=== PATIENT | male | born 1970 | race African-American/Black ===

== ENCOUNTER 2021-03-03 11:11 | Emergency (ER) | payer OTHER, SELFPAY ==
[2021-03-03 11:35] VITALS: BP 186/101; PULSE 100; RESP 16; TEMP 36.9; O2SAT 95; BMI 33.4
[2021-03-03 13:01] VITALS: BP 173/99; PULSE 105; RESP 16; TEMP 36.7; O2SAT 96
--- NOTE | 2021-03-03 13:12 | ED.ALCOHOL ---
HPI - Alcohol General Chief Complaint: ETOH/Substance Use <Sofia Lombardo PA-C - Last Filed: 03/03/21 17:18> Stated Complaint: requesting detox <Sofia Lombardo PA-C - Last Filed: 03/03/21 17:18> Time Seen by Provider: 03/03/21 12:40 <Sofia Lombardo PA-C - Last Filed: 03/03/21 17:18> Source: patient <Sofia Lombardo PA-C - Last Filed: 03/03/21 17:18> Mode of arrival: ambulatory <Sofia Lombardo PA-C - Last Filed: 03/03/21 17:18> Limitations: no limitations <Sofia Lombardo PA-C - Last Filed: 03/03/21 17:18> History of Present Illness HPI narrative: Patient is a 50-year-old male with past medical history of DM2 on insulin and HTN presenting to the ED requesting detox. He states he last used cocaine and alcohol approximately 24 hours ago, he also last used heroin 24-48 hours ago. He states he is currently feeling nauseous shaky and antsy. He states he has not taken his diabetes medications in about a week and has not checked his blood sugar in a couple of weeks. He states he did take his lisinopril/HCTZ this morning. <Sofia Lombardo PA-C - Last Filed: 03/03/21 17:18> MD complaint: desires rehab <Sofia Lombardo PA-C - Last Filed: 03/03/21 17:18> Related Data Allergies/Adverse Reactions: Allergies Allergy/AdvReac Type Severity Reaction Status Date / Time No Known Allergies Allergy Verified 03/03/21 11:35 <Sofia Lombarod PA-C - Last Filed: 03/03/21 17:18> Review of Systems Review of Systems: Yes all other systems are reviewed and are negative <Sofia Lombardo PA-C - Last Filed: 03/03/21 17:18> [facility] Past Medical History Medical History: Medical History HTN (hypertension) IDDM (insulin dependent diabetes mellitus) <Sofia Lombardo PA-C - Last Filed: 03/03/21 17:18> Social History Social History: Social History Advance Directives: No Advance Directives Information Provided: No <Sofia Lombardo PA-C - Last Filed: 03/03/21 17:18> Physical Exam Vital Signs: Vital Signs: Last Vital Signs Temp 98.1 F 03/03/21 13:01 Pulse 106 H 03/03/21 16:03 Resp 16 03/03/21 16:03 BP 186/109 H 03/03/21 16:03 Pulse Ox 97 03/03/21 16:03 Body Mass Index 33.4 <Sofia Lombardo PA-C - Last Filed: 03/03/21 17:18> Vital Signs: Last Vital Signs Temp 98.1 F 03/03/21 13:01 Pulse 106 H 03/03/21 16:03 Resp 16 03/03/21 16:03 BP 186/109 H 03/03/21 16:03 Pulse Ox 97 03/03/21 16:03 Body Mass Index 33.4 <Codey Phan MD - Last Filed: 03/22/21 13:33> Const: General: cooperative, healthy appearing, comfortable and no acute distress <Sofia Lombardo PA-C - Last Filed: 03/03/21 17:18> Nutritional Appearance: obese <Sofia Lombardo PA-C - Last Filed: 03/03/21 17:18> Orientation/consciousness: patient oriented x3 <Sofia Lombardo PA-C - Last Filed: 03/03/21 17:18> Eyes: General: appearance normal, both eyes and all related structures <Sofia Lombardo PA-C - Last Filed: 03/03/21 17:18> Pupils: Equal, round and reactive pupils present <Sofia Lombardo PA-C - Last Filed: 03/03/21 17:18> EOM: EOMs intact bilaterally <Sofia Lombardo PA-C - Last Filed: 03/03/21 17:18> Neck: Neck: Yes normal visual inspection and Yes full ROM <Sofia Lombardo PA-C - Last Filed: 03/03/21 17:18> Resp: Effort & Inspection: normal respiratory effort and able to speak in complete sentences <Sofia Lombardo PA-C - Last Filed: 03/03/21 17:18> Auscultation: clear to auscultation bilaterally <Sofia Lombardo PA-C - Last Filed: 03/03/21 17:18> Cardio: Rate: regular rate <Sofia Lombardo PA-C - Last Filed: 03/03/21 17:18> Rhythm: regular rhythm <Sofia Lombardo PA-C - Last Filed: 03/03/21 17:18> Heart sounds: normal S1 and S2 <Sofia Lombardo PA-C - Last Filed: 03/03/21 17:18> GI: Inspection: Yes normal to inspection <Sofia Lombardo PA-C - Last Filed: 03/03/21 17:18> Palpation (GI): Soft to palpation and nontender <Sofia Lombardo PA-C - Last Filed: 03/03/21 17:18> Neuro: General: patient oriented x3 <Sofia Lombardo PA-C - Last Filed: 03/03/21 17:18> Cranial nerves: Yes Equal, round and reactive pupils present <Sofia Lombardo PA-C - Last Filed: 03/03/21 17:18> Psych: Appearance: grossly normal <Sofia Lombardo PA-C - Last Filed: 03/03/21 17:18> Course Course Course Narrative: Patient is a 50-year-old male with past medical history of DM2 on insulin and HTN presenting to the ED requesting detox from cocaine, etoh and heroin. Patient's point of care is 506 and 432. Will get labs and move patient to the main ED. will give insulin and fluids and monitor POC's. <Sofia Lombardo PA-C - Last Filed: 03/03/21 17:18> I have reviewed the chart <Codey Phan MD - Last Filed: 03/22/21 13:33> Reevaluation(s) Reevaluation #1: Patient still hypertensive in the 180s systolic, blood glucose in the 360s. Will give 5 mg hydralazine and another 5 units of insulin as well as another L of LR. Then recheck vital then likely discharge around 18:00 <Sofia Lombardo PA-C - Last Filed: 03/03/21 17:18> Time: 17:17 <Sofia Lombardo PA-C - Last Filed: 03/03/21 17:18> Reevaluation #2: Blood pressure is down to 128 over 90, blood sugar is down to 1 5. Will discharge patient, he has a ride to the [facility] and knows where it is. 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 <Sofia Lombardo PA-C - Last Filed: 03/03/21 17:18> MDM - Alcohol Lab Data Result diagrams: : 03/03/21 13:58 03/03/21 14:33 <Sofia Lombardo PA-C - Last Filed: 03/03/21 17:18> Labs: Lab Results 03/03/21 03/03/21 03/03/21 Range/Units 13:15 13:19 13:58 WBC 11.0 H (4.8-10.8) X10*3/uL RBC 4.85 (4.60-5.80) X10*6/uL Hgb 14.9 (14.0-18.0) g/dl Hct 44.3 (42-52) % MCV 91.3 (80-98) fL MCH 30.7 (27.0-33.0) pg MCHC 33.6 (31.0-36.0) g/dl RDW 12.9 (11.0-16.0) % Plt Count 265 (160-400) X10*3/uL MPV 10.3 (9.4-12.4) fL Immature Gran % (Auto) 0.3 (0.0-0.4) % Neut % (Auto) 52.4 (45-73) % Lymph % (Auto) 37.1 (20-40) % [place] % (Auto) 7.3 (2-11) % Eos % (Auto) 2.4 (0-4) % Baso % (Auto) 0.5 (0-2) % Lymph # (Auto) 4.1 (1.2-4.9) X10*3/uL [place] # (Auto) 0.8 (0.1-1.2) X10*3/uL Eos # (Auto) 0.3 (0.0-0.4) X10*3/uL Baso # (Auto) 0.1 (0.0-0.2) X10*3/uL Abs Immat Gran (auto) 0.03 (0.00-0.03) X10*3/uL Absolute Neuts (auto) 5.8 (2.0-8.3) X10*3/uL Absolute Nucleated RBC 0.000 (0.0-0.012) X10*3/uL Nucleated RBC % (auto) 0.0 (0.0-0.2) /100WBC PT (10.8-13.0) SEC INR (0.9-1.1) APTT (24.1-38.0) SEC VBG pH (7.32-7.43) VBG pCO2 mmHg VBG pO2 mmHg VBG HCO3 (22-26) mmol/L VBG O2 Saturation % VBG Base Excess mmol/L Sodium (135-145) mmol/L Potassium (3.3-5.1) mmol/L Chloride (96-108) mmol/L Carbon Dioxide (22-29) mmol/L Anion Gap (12-20) BUN (9-16) mg/dL Creatinine (0.5-1.4) mg/dL Estim Creat Clear Calc Estimated GFR POC Glucose 432 H* 506 H* (60-115) mg/dL Random Glucose (60-115) mg/dL Calcium (8.4-10.2) mg/dL Total Bilirubin (0.0-1.0) mg/dL AST (5-37) U/L ALT (0-40) U/L Alkaline Phosphatase (39-117) U/L Total Protein (6.5-8.0) g/dL Albumin (3.5-5.0) g/dL Urine Opiates Screen (Not Detect) Ur Barbiturates Screen (Not Detect) Ur Phencyclidine Scrn (Not Detect) Ur Amphetamines Screen (Not Detect) U Benzodiazepines Scrn (Not Detect) Urine Cocaine Screen (Not Detect) U Marijuana (THC) Screen (Not Detect) Ethyl Alcohol mg/dL 03/03/21 03/03/21 03/03/21 Range/Units 13:58 13:58 14:25 WBC (4.8-10.8) X10*3/uL RBC (4.60-5.80) X10*6/uL Hgb (14.0-18.0) g/dl Hct (42-52) % MCV (80-98) fL MCH (27.0-33.0) pg MCHC (31.0-36.0) g/dl RDW (11.0-16.0) % Plt Count (160-400) X10*3/uL MPV (9.4-12.4) fL Immature Gran % (Auto) (0.0-0.4) % Neut % (Auto) (45-73) % Lymph % (Auto) (20-40) % [place] % (Auto) (2-11) % Eos % (Auto) (0-4) % Baso % (Auto) (0-2) % Lymph # (Auto) (1.2-4.9) X10*3/uL [place] # (Auto) (0.1-1.2) X10*3/uL Eos # (Auto) (0.0-0.4) X10*3/uL Baso # (Auto) (0.0-0.2) X10*3/uL Abs Immat Gran (auto) (0.00-0.03) X10*3/uL Absolute Neuts (auto) (2.0-8.3) X10*3/uL Absolute Nucleated RBC (0.0-0.012) X10*3/uL Nucleated RBC % (auto) (0.0-0.2) /100WBC PT 12.4 (10.8-13.0) SEC INR 1.0 (0.9-1.1) APTT 30.7 (24.1-38.0) SEC VBG pH (7.32-7.43) VBG pCO2 mmHg VBG pO2 mmHg VBG HCO3 (22-26) mmol/L VBG O2 Saturation % VBG Base Excess mmol/L Sodium (135-145) mmol/L Potassium (3.3-5.1) mmol/L Chloride (96-108) mmol/L Carbon Dioxide (22-29) mmol/L Anion Gap (12-20) BUN (9-16) mg/dL Creatinine (0.5-1.4) mg/dL Estim Creat Clear Calc Estimated GFR POC Glucose (60-115) mg/dL Random Glucose (60-115) mg/dL Calcium (8.4-10.2) mg/dL Total Bilirubin (0.0-1.0) mg/dL AST (5-37) U/L ALT (0-40) U/L Alkaline Phosphatase (39-117) U/L Total Protein (6.5-8.0) g/dL Albumin (3.5-5.0) g/dL Urine Opiates Screen Not Detected (Not Detect) Ur Barbiturates Screen Not Detected (Not Detect) Ur Phencyclidine Scrn Not Detected (Not Detect) Ur Amphetamines Screen Not Detected (Not Detect) U Benzodiazepines Scrn Not Detected (Not Detect) Urine Cocaine Screen POSITIVE H (Not Detect) U Marijuana (THC) Screen Not Detected (Not Detect) Ethyl Alcohol < 10 mg/dL 03/03/21 03/03/21 03/03/21 Range/Units 14:33 14:40 15:22 WBC (4.8-10.8) X10*3/uL RBC (4.60-5.80) X10*6/uL Hgb (14.0-18.0) g/dl Hct (42-52) % MCV (80-98) fL MCH (27.0-33.0) pg MCHC (31.0-36.0) g/dl RDW (11.0-16.0) % Plt Count (160-400) X10*3/uL MPV (9.4-12.4) fL Immature Gran % (Auto) (0.0-0.4) % Neut % (Auto) (45-73) % Lymph % (Auto) (20-40) % [place] % (Auto) (2-11) % Eos % (Auto) (0-4) % Baso % (Auto) (0-2) % Lymph # (Auto) (1.2-4.9) X10*3/uL [place] # (Auto) (0.1-1.2) X10*3/uL Eos # (Auto) (0.0-0.4) X10*3/uL Baso # (Auto) (0.0-0.2) X10*3/uL Abs Immat Gran (auto) (0.00-0.03) X10*3/uL Absolute Neuts (auto) (2.0-8.3) X10*3/uL Absolute Nucleated RBC (0.0-0.012) X10*3/uL Nucleated RBC % (auto) (0.0-0.2) /100WBC PT (10.8-13.0) SEC INR (0.9-1.1) APTT (24.1-38.0) SEC VBG pH 7.41 (7.32-7.43) VBG pCO2 38 mmHg VBG pO2 58 mmHg VBG HCO3 24 (22-26) mmol/L VBG O2 Saturation 87.0 % VBG Base Excess 0.4 mmol/L Sodium 133 L (135-145) mmol/L Potassium 4.3 (3.3-5.1) mmol/L Chloride 96 (96-108) mmol/L Carbon Dioxide 25 (22-29) mmol/L Anion Gap 16 (12-20) BUN 11 (9-16) mg/dL Creatinine 1.24 (0.5-1.4) mg/dL Estim Creat Clear Calc 83.4 Estimated GFR > 60 POC Glucose 384 H* (60-115) mg/dL Random Glucose 510 H* (60-115) mg/dL Calcium 9.4 (8.4-10.2) mg/dL Total Bilirubin 0.6 (0.0-1.0) mg/dL AST 15 (5-37) U/L ALT 21 (0-40) U/L Alkaline Phosphatase 85 (39-117) U/L Total Protein 6.9 (6.5-8.0) g/dL Albumin 4.1 (3.5-5.0) g/dL Urine Opiates Screen (Not Detect) Ur Barbiturates Screen (Not Detect) Ur Phencyclidine Scrn (Not Detect) Ur Amphetamines Screen (Not Detect) U Benzodiazepines Scrn (Not Detect) Urine Cocaine Screen (Not Detect) U Marijuana (THC) Screen (Not Detect) Ethyl Alcohol mg/dL 03/03/21 03/03/21 Range/Units 16:00 17:09 WBC (4.8-10.8) X10*3/uL RBC (4.60-5.80) X10*6/uL Hgb (14.0-18.0) g/dl Hct (42-52) % MCV (80-98) fL MCH (27.0-33.0) pg MCHC (31.0-36.0) g/dl RDW (11.0-16.0) % Plt Count (160-400) X10*3/uL MPV (9.4-12.4) fL Immature Gran % (Auto) (0.0-0.4) % Neut % (Auto) (45-73) % Lymph % (Auto) (20-40) % [place] % (Auto) (2-11) % Eos % (Auto) (0-4) % Baso % (Auto) (0-2) % Lymph # (Auto) (1.2-4.9) X10*3/uL [place] # (Auto) (0.1-1.2) X10*3/uL Eos # (Auto) (0.0-0.4) X10*3/uL Baso # (Auto) (0.0-0.2) X10*3/uL Abs Immat Gran (auto) (0.00-0.03) X10*3/uL Absolute Neuts (auto) (2.0-8.3) X10*3/uL Absolute Nucleated RBC (0.0-0.012) X10*3/uL Nucleated RBC % (auto) (0.0-0.2) /100WBC PT (10.8-13.0) SEC INR (0.9-1.1) APTT (24.1-38.0) SEC VBG pH (7.32-7.43) VBG pCO2 mmHg VBG pO2 mmHg VBG HCO3 (22-26) mmol/L VBG O2 Saturation % VBG Base Excess mmol/L Sodium (135-145) mmol/L Potassium (3.3-5.1) mmol/L Chloride (96-108) mmol/L Carbon Dioxide (22-29) mmol/L Anion Gap (12-20) BUN (9-16) mg/dL Creatinine (0.5-1.4) mg/dL Estim Creat Clear Calc Estimated GFR POC Glucose 362 H* 214 H (60-115) mg/dL Random Glucose (60-115) mg/dL Calcium (8.4-10.2) mg/dL Total Bilirubin (0.0-1.0) mg/dL AST (5-37) U/L ALT (0-40) U/L Alkaline Phosphatase (39-117) U/L Total Protein (6.5-8.0) g/dL Albumin (3.5-5.0) g/dL Urine Opiates Screen (Not Detect) Ur Barbiturates Screen (Not Detect) Ur Phencyclidine Scrn (Not Detect) Ur Amphetamines Screen (Not Detect) U Benzodiazepines Scrn (Not Detect) Urine Cocaine Screen (Not Detect) U Marijuana (THC) Screen (Not Detect) Ethyl Alcohol mg/dL <Sofia Lombardo PA-C - Last Filed: 03/03/21 17:18> Lab Results 03/03/21 03/03/21 03/03/21 Range/Units 13:15 13:19 13:58 WBC 11.0 H (4.8-10.8) X10*3/uL RBC 4.85 (4.60-5.80) X10*6/uL Hgb 14.9 (14.0-18.0) g/dl Hct 44.3 (42-52) % MCV 91.3 (80-98) fL MCH 30.7 (27.0-33.0) pg MCHC 33.6 (31.0-36.0) g/dl RDW 12.9 (11.0-16.0) % Plt Count 265 (160-400) X10*3/uL MPV 10.3 (9.4-12.4) fL Immature Gran % (Auto) 0.3 (0.0-0.4) % Neut % (Auto) 52.4 (45-73) % Lymph % (Auto) 37.1 (20-40) % [place] % (Auto) 7.3 (2-11) % Eos % (Auto) 2.4 (0-4) % Baso % (Auto) 0.5 (0-2) % Lymph # (Auto) 4.1 (1.2-4.9) X10*3/uL [place] # (Auto) 0.8 (0.1-1.2) X10*3/uL Eos # (Auto) 0.3 (0.0-0.4) X10*3/uL Baso # (Auto) 0.1 (0.0-0.2) X10*3/uL Abs Immat Gran (auto) 0.03 (0.00-0.03) X10*3/uL Absolute Neuts (auto) 5.8 (2.0-8.3) X10*3/uL Absolute Nucleated RBC 0.000 (0.0-0.012) X10*3/uL Nucleated RBC % (auto) 0.0 (0.0-0.2) /100WBC PT (10.8-13.0) SEC INR (0.9-1.1) APTT (24.1-38.0) SEC VBG pH (7.32-7.43) VBG pCO2 mmHg VBG pO2 mmHg VBG HCO3 (22-26) mmol/L VBG O2 Saturation % VBG Base Excess mmol/L Sodium (135-145) mmol/L Potassium (3.3-5.1) mmol/L Chloride (96-108) mmol/L Carbon Dioxide (22-29) mmol/L Anion Gap (12-20) BUN (9-16) mg/dL Creatinine (0.5-1.4) mg/dL Estim Creat Clear Calc Estimated GFR POC Glucose 432 H* 506 H* (60-115) mg/dL Random Glucose (60-115) mg/dL Calcium (8.4-10.2) mg/dL Total Bilirubin (0.0-1.0) mg/dL AST (5-37) U/L ALT (0-40) U/L Alkaline Phosphatase (39-117) U/L Total Protein (6.5-8.0) g/dL Albumin (3.5-5.0) g/dL Urine Opiates Screen (Not Detect) Ur Barbiturates Screen (Not Detect) Ur Phencyclidine Scrn (Not Detect) Ur Amphetamines Screen (Not Detect) U Benzodiazepines Scrn (Not Detect) Urine Cocaine Screen (Not Detect) U Marijuana (THC) Screen (Not Detect) Ethyl Alcohol mg/dL 03/03/21 03/03/21 03/03/21 Range/Units 13:58 13:58 14:25 WBC (4.8-10.8) X10*3/uL RBC (4.60-5.80) X10*6/uL Hgb (14.0-18.0) g/dl Hct (42-52) % MCV (80-98) fL MCH (27.0-33.0) pg MCHC (31.0-36.0) g/dl RDW (11.0-16.0) % Plt Count (160-400) X10*3/uL MPV (9.4-12.4) fL Immature Gran % (Auto) (0.0-0.4) % Neut % (Auto) (45-73) % Lymph % (Auto) (20-40) % [place] % (Auto) (2-11) % Eos % (Auto) (0-4) % Baso % (Auto) (0-2) % Lymph # (Auto) (1.2-4.9) X10*3/uL [place] # (Auto) (0.1-1.2) X10*3/uL Eos # (Auto) (0.0-0.4) X10*3/uL Baso # (Auto) (0.0-0.2) X10*3/uL Abs Immat Gran (auto) (0.00-0.03) X10*3/uL Absolute Neuts (auto) (2.0-8.3) X10*3/uL Absolute Nucleated RBC (0.0-0.012) X10*3/uL Nucleated RBC % (auto) (0.0-0.2) /100WBC PT 12.4 (10.8-13.0) SEC INR 1.0 (0.9-1.1) APTT 30.7 (24.1-38.0) SEC VBG pH (7.32-7.43) VBG pCO2 mmHg VBG pO2 mmHg VBG HCO3 (22-26) mmol/L VBG O2 Saturation % VBG Base Excess mmol/L Sodium (135-145) mmol/L Potassium (3.3-5.1) mmol/L Chloride (96-108) mmol/L Carbon Dioxide (22-29) mmol/L Anion Gap (12-20) BUN (9-16) mg/dL Creatinine (0.5-1.4) mg/dL Estim Creat Clear Calc Estimated GFR POC Glucose (60-115) mg/dL Random Glucose (60-115) mg/dL Calcium (8.4-10.2) mg/dL Total Bilirubin (0.0-1.0) mg/dL AST (5-37) U/L ALT (0-40) U/L Alkaline Phosphatase (39-117) U/L Total Protein (6.5-8.0) g/dL Albumin (3.5-5.0) g/dL Urine Opiates Screen Not Detected (Not Detect) Ur Barbiturates Screen Not Detected (Not Detect) Ur Phencyclidine Scrn Not Detected (Not Detect) Ur Amphetamines Screen Not Detected (Not Detect) U Benzodiazepines Scrn Not Detected (Not Detect) Urine Cocaine Screen POSITIVE H (Not Detect) U Marijuana (THC) Screen Not Detected (Not Detect) Ethyl Alcohol < 10 mg/dL 03/03/21 03/03/21 03/03/21 Range/Units 14:33 14:40 15:22 WBC (4.8-10.8) X10*3/uL RBC (4.60-5.80) X10*6/uL Hgb (14.0-18.0) g/dl Hct (42-52) % MCV (80-98) fL MCH (27.0-33.0) pg MCHC (31.0-36.0) g/dl RDW (11.0-16.0) % Plt Count (160-400) X10*3/uL MPV (9.4-12.4) fL Immature Gran % (Auto) (0.0-0.4) % Neut % (Auto) (45-73) % Lymph % (Auto) (20-40) % [place] % (Auto) (2-11) % Eos % (Auto) (0-4) % Baso % (Auto) (0-2) % Lymph # (Auto) (1.2-4.9) X10*3/uL [place] # (Auto) (0.1-1.2) X10*3/uL Eos # (Auto) (0.0-0.4) X10*3/uL Baso # (Auto) (0.0-0.2) X10*3/uL Abs Immat Gran (auto) (0.00-0.03) X10*3/uL Absolute Neuts (auto) (2.0-8.3) X10*3/uL Absolute Nucleated RBC (0.0-0.012) X10*3/uL Nucleated RBC % (auto) (0.0-0.2) /100WBC PT (10.8-13.0) SEC INR (0.9-1.1) APTT (24.1-38.0) SEC VBG pH 7.41 (7.32-7.43) VBG pCO2 38 mmHg VBG pO2 58 mmHg VBG HCO3 24 (22-26) mmol/L VBG O2 Saturation 87.0 % VBG Base Excess 0.4 mmol/L Sodium 133 L (135-145) mmol/L Potassium 4.3 (3.3-5.1) mmol/L Chloride 96 (96-108) mmol/L Carbon Dioxide 25 (22-29) mmol/L Anion Gap 16 (12-20) BUN 11 (9-16) mg/dL Creatinine 1.24 (0.5-1.4) mg/dL Estim Creat Clear Calc 83.4 Estimated GFR > 60 POC Glucose 384 H* (60-115) mg/dL Random Glucose 510 H* (60-115) mg/dL Calcium 9.4 (8.4-10.2) mg/dL Total Bilirubin 0.6 (0.0-1.0) mg/dL AST 15 (5-37) U/L ALT 21 (0-40) U/L Alkaline Phosphatase 85 (39-117) U/L Total Protein 6.9 (6.5-8.0) g/dL Albumin 4.1 (3.5-5.0) g/dL Urine Opiates Screen (Not Detect) Ur Barbiturates Screen (Not Detect) Ur Phencyclidine Scrn (Not Detect) Ur Amphetamines Screen (Not Detect) U Benzodiazepines Scrn (Not Detect) Urine Cocaine Screen (Not Detect) U Marijuana (THC) Screen (Not Detect) Ethyl Alcohol mg/dL 03/03/21 03/03/21 Range/Units 16:00 17:09 WBC (4.8-10.8) X10*3/uL RBC (4.60-5.80) X10*6/uL Hgb (14.0-18.0) g/dl Hct (42-52) % MCV (80-98) fL MCH (27.0-33.0) pg MCHC (31.0-36.0) g/dl RDW (11.0-16.0) % Plt Count (160-400) X10*3/uL MPV (9.4-12.4) fL Immature Gran % (Auto) (0.0-0.4) % Neut % (Auto) (45-73) % Lymph % (Auto) (20-40) % [place] % (Auto) (2-11) % Eos % (Auto) (0-4) % Baso % (Auto) (0-2) % Lymph # (Auto) (1.2-4.9) X10*3/uL [place] # (Auto) (0.1-1.2) X10*3/uL Eos # (Auto) (0.0-0.4) X10*3/uL Baso # (Auto) (0.0-0.2) X10*3/uL Abs Immat Gran (auto) (0.00-0.03) X10*3/uL Absolute Neuts (auto) (2.0-8.3) X10*3/uL Absolute Nucleated RBC (0.0-0.012) X10*3/uL Nucleated RBC % (auto) (0.0-0.2) /100WBC PT (10.8-13.0) SEC INR (0.9-1.1) APTT (24.1-38.0) SEC VBG pH (7.32-7.43) VBG pCO2 mmHg VBG pO2 mmHg VBG HCO3 (22-26) mmol/L VBG O2 Saturation % VBG Base Excess mmol/L Sodium (135-145) mmol/L Potassium (3.3-5.1) mmol/L Chloride (96-108) mmol/L Carbon Dioxide (22-29) mmol/L Anion Gap (12-20) BUN (9-16) mg/dL Creatinine (0.5-1.4) mg/dL Estim Creat Clear Calc Estimated GFR POC Glucose 362 H* 214 H (60-115) mg/dL Random Glucose (60-115) mg/dL Calcium (8.4-10.2) mg/dL Total Bilirubin (0.0-1.0) mg/dL AST (5-37) U/L ALT (0-40) U/L Alkaline Phosphatase (39-117) U/L Total Protein (6.5-8.0) g/dL Albumin (3.5-5.0) g/dL Urine Opiates Screen (Not Detect) Ur Barbiturates Screen (Not Detect) Ur Phencyclidine Scrn (Not Detect) Ur Amphetamines Screen (Not Detect) U Benzodiazepines Scrn (Not Detect) Urine Cocaine Screen (Not Detect) U Marijuana (THC) Screen (Not Detect) Ethyl Alcohol mg/dL <Codey Phan MD - Last Filed: 03/22/21 13:33> Discharge Plan Discharge Clinical Impression: ETOH abuse, Current drug use, Hypertension, IDDM (insulin dependent diabetes mellitus) <Sofia Lombardo PA-C - Last Filed: 03/03/21 17:18> Patient Disposition: Home, Self-Care <Sofia Lombardo PA-C - Last Filed: 03/03/21 17:18> Instructions: Abuse of Alcohol (ED), Polysubstance Abuse (ED), Hypertension and Diabetes (ED) <Sofia Lombardo PA-C - Last Filed: 03/03/21 17:18> Additional Instructions: As you stop taking her diabetes medications, your blood sugar obviously was elevated. We have brought that down to a safer level today. It is imperative you continue to take her diabetes medications or your blood sugar will go right back up. Please continue to take your hypertension and diabetes medications. Please follow-up with your PCP as soon as possible. <Sofia Lombardo PA-C - Last Filed: 03/03/21 17:18> Interventions: ED Discharge Assessment Last Done: 03/03/21 17:21 <Sofia Lombardo PA-C - Last Filed: 03/03/21 17:18> Discharge Date/Time: 03/03/21 17:22 <Sofia Lombardo PA-C - Last Filed: 03/03/21 17:18>
[2021-03-03 13:23] LABS: Glucose, Whole Blood 506 mg/dL (60-115)
[2021-03-03 13:24] LABS: Glucose, Whole Blood 432 mg/dL (60-115)
--- NOTE | 2021-03-03 13:40 | MHC.RECOVSUP ---
? Reason for consult:Continuity of care o Current location:[facility] o Identified substance use concern: ETOH, Crack, Heroin - Withdrawal - Seeking ATS (detox) - Support ? Intervention: o ATS bed search started/completed/in proces o Community resources provided o Harm reduction discussion ? Plan: o o Bed search in progress o Patient to follow up with [facility] after discharge ? Additional information:
[2021-03-03 14:14] LABS: MANUAL DIFF FLAG NO
[2021-03-03 14:17] LABS: Basophils Absolute Auto 0.1 X10*3/uL (0.0-0.2); Basophils Percent Auto 0.5 % (0-2); Eosinophils Absolute Auto 0.3 X10*3/uL (0.0-0.4); Eosinophils Percent Auto 2.4 % (0-4); Hematocrit 44.3 % (42-52); Hemoglobin 14.9 g/dl (14.0-18.0); Imm Gran Abs Auto 0.03 X10*3/uL (0.00-0.03); Imm Gran Pct Auto 0.3 % (0.0-0.4); Lymphocytes Absolute Auto 4.1 X10*3/uL (1.2-4.9); Lymphocytes Percent Auto 37.1 % (20-40); Mean Corpuscular HGB Conc 33.6 g/dl (31.0-36.0); Mean Corpuscular Hemoglobin 30.7 pg (27.0-33.0); Mean Corpuscular Volume 91.3 fL (80-98); Mean Platelet Volume 10.3 fL (9.4-12.4); Monocytes Absolute Auto 0.8 X10*3/uL (0.1-1.2); Monocytes Percent Auto 7.3 % (2-11); Neutrophils Absolute Auto 5.8 X10*3/uL (2.0-8.3); Neutrophils Percent Auto 52.4 % (45-73); Platelet Count 265 X10*3/uL (160-400); Red Blood Count 4.85 X10*6/uL (4.60-5.80); Red Cell Distribution Width 12.9 % (11.0-16.0)
[2021-03-03 14:21] LABS: Prothrombin Time 12.4 SEC (10.8-13.0)
[2021-03-03 14:23] LABS: Partial Thromboplastin Time 30.7 SEC (24.1-38.0)
[2021-03-03] MEDS: Insulin Regular, Human 100 UNIT/ML 3 ML VIAL SUBCUT (14:26)
[2021-03-03] MEDS: Lactated Ringers 1,000 ML 999 ML IV ×2 (14:27→16:26)
[2021-03-03 14:37] LABS: Ethanol < 10 mg/dL
[2021-03-03 14:46] LABS: VBG Base Excess 0.4 mmol/L; VBG HCO3 24 mmol/L (22-26); VBG pCO2 38 mmHg; VBG pH 7.41 (7.32-7.43); VBG pO2 58 mmHg
[2021-03-03 14:48] LABS: Venous Blood Gas Refer to POC result
[2021-03-03 15:03] LABS: Amphetamine Screen Urine Not Detected (Not Detect); Barbiturates, Urine Not Detected (Not Detect); Benzodiazepines Screen Urine Not Detected (Not Detect); Cannabinoid Screen Urine Not Detected (Not Detect); Cocaine Screen Urine POSITIVE (Not Detect); Opiate Screen Urine Not Detected (Not Detect); Phencyclidine Screen Urine Not Detected (Not Detect)
[2021-03-03 15:19] LABS: Alanine Aminotransferase 21 U/L (0-40); Albumin Level 4.1 g/dL (3.5-5.0); Alkaline Phosphatase 85 U/L (39-117); Anion Gap 16 (12-20); Aspartate Amino Transferase 15 U/L (5-37); Bilirubin Total 0.6 mg/dL (0.0-1.0); Blood Urea Nitrogen 11 mg/dL (9-16); Calcium 9.4 mg/dL (8.4-10.2); Carbon Dioxide 25 mmol/L (22-29); Chloride 96 mmol/L (96-108); Creatinine Clr Calc Pharmacy 83.4; Estimated Glomerular Filt Rate > 60; Glucose Random 510 mg/dL (60-115); Potassium 4.3 mmol/L (3.3-5.1); Sodium 133 mmol/L (135-145); Total Protein 6.9 g/dL (6.5-8.0)
[2021-03-03 15:25] LABS: Glucose, Whole Blood 384 mg/dL (60-115)
[2021-03-03 16:03] VITALS: BP 186/109; PULSE 106; RESP 16; O2SAT 97
[2021-03-03] MEDS: hydrALAZINE HCl 10 MG TABLET PO (16:26)
[2021-03-03] MEDS: Insulin Regular, Human 100 UNIT/ML 3 ML VIAL IVPUSH (16:26)
[2021-03-03 16:27] LABS: Glucose, Whole Blood 362 mg/dL (60-115)
[2021-03-03 17:13] LABS: Glucose, Whole Blood 214 mg/dL (60-115)
== END 2021-03-03 17:22 | disposition home or self-care (01) ==
PROVIDERS: Physician Assistant; Emergency Provider Emergency Medicine; PCP Internal Medicine
DX: F14.90 Cocaine use, unspecified, uncomplicated (principal); F11.90 Opioid use, unspecified, uncomplicated; F10.10 Alcohol abuse, uncomplicated; Y90.0 Blood alcohol level of less than 20 mg/100 ml; E11.9 Type 2 diabetes mellitus without complications; Z91.14 Patient's other noncompliance with medication regimen; I10 Essential (primary) hypertension; Z79.4 Long term (current) use of insulin
CPT/HCPCS: 36415; 80053; 80307; 80320; 82947; 85025; 85610; 85730; 96365; 96366; 96375; 99283; 99284

== ENCOUNTER 2024-06-30 12:26 | Emergency (ER) | payer OTHER, SELFPAY ==
--- NOTE | ~2024-06-30 | CT_ITS ---
EXAMINATION: CT HEAD WITHOUT CONTRAST CT CERVICAL SPINE WITHOUT CONTRAST CLINICAL INFORMATION: Altered mental status. Neck pain. Patient found on ground. COMPARISON: None available. TECHNIQUE: Contiguous axial imaging was performed from the skull base to vertex without intravenous administration of contrast. Contiguous axial imaging was performed from the upper chest through the skull base without intravenous administration of contrast. Coronal and sagittal reformats were obtained at the acquisition workstation. This CT examination was performed using dose optimization techniques as appropriate, variously including the following: *Automated exposure control. *Adjustment of mA and/or kV according to patient size (this includes techniques or standardized protocols for targeted exams where dose is matched to indication/reason for exam; i.e. extremities or head). *Use of iterative reconstruction technique. DLP: 2230 mGy-cm FINDINGS: Head: Moderately motion degraded exam. There is no evidence of acute intracranial hemorrhage or edematous territorial infarction. Estrada-white matter differentiation is preserved. A few foci of hypoattenuation in the periventricular and deep white matter are consistent with mild microangiopathy. Proportional prominence of the ventricles and sulcal spaces without evidence of obstructive hydrocephalus. No abnormal mass effect or midline shift. No extra-axial fluid collections. No acute soft tissue or osseous abnormalities. Complete opacification of an atelectatic left maxillary sinus. Mild mucosal thickening of the remaining paranasal sinuses. The mastoid air cells and middle ear cavities are clear. Cervical Spine: Moderately motion degraded exam. The atlantooccipital and atlantoaxial articulations remain well aligned. Straightening of the normal cervical lordosis. Moderate degenerative retrolisthesis of L3 on L4. Otherwise, there is anatomic alignment of the vertebral bodies and posterior elements. No evidence of acute fracture or subluxation. The vertebral body heights are maintained. Advanced degenerative disc disease at C3-C4 and C5-C6. Mild to moderate degenerative disc disease at all additional levels. Facet and uncovertebral joint arthropathy leads to osseous encroachment on the neural foramina at C3-C4. There is no prevertebral soft tissue swelling. Mild to moderate anasarca. The thyroid gland and remaining cervical soft tissues are within normal limits. The lung apices demonstrate no abnormalities. CT/CT cervical spine wo IV con IMPRESSION: 1. No evidence of acute intracranial hemorrhage or edematous territorial infarction. Mild underlying microangiopathy and generalized cerebral volume loss. 2. No evidence of acute fracture or traumatic subluxation of the cervical spine. Moderate multilevel degenerative spondyloarthropathy of the cervical spine. Electronically signed by: Ron Brown DO 06/30/2024 06:10 PM EDT RP
--- NOTE | ~2024-06-30 | XR_ITS ---
EXAMINATION: XR CHEST CLINICAL INFORMATION: Status post fall. Altered mental status. Chest trauma. COMPARISON: None available. TECHNIQUE: Frontal view of the chest was obtained. FINDINGS: Cardiomediastinal silhouette is within normal limits for given technique. Lungs are adequately expanded. No focal consolidation, changes of congestion, pleural effusions or pneumothorax are seen. No displaced rib fractures are seen. XR/XR chest 1V IMPRESSION: No acute pulmonary process. No displaced rib fractures are seen. Electronically signed by: Alana Wolf MD 06/30/2024 03:28 PM EDT
[2024-06-30 12:40] VITALS: BP 169/106; PULSE 78; O2SAT 95
--- NOTE | 2024-06-30 12:44 | ED_ITS ---
HPI - General Adult General Chief complaint: Altered Mental Status Stated complaint: LOW BS 37,DEXTROSE GIVEN PER EMS Time Seen by Provider: 06/30/24 12:40 Source: patient Mode of arrival: ambulatory Limitations: altered mental status History of Present Illness ED Provider: Stan ANDREW HPI narrative: 53 yo m hx HTN, IDDM, substance use disorder presenting for low glucose, he was found on the ground at the [facility] POC was 37. He got 25 g of dextrose by EMS repeat sugar 156. Sugar was 56 upon arrival here. Unclear how much insulin he took this morning he is confused on arrival and poor historian . He told nursing staff he did not eat this AM. Related Data Allergies Allergy/AdvReac Type Severity Reaction Status Date / Time No Known Allergies Allergy Verified 06/30/24 13:04 Review of Systems 2 Review of Systems: Yes Unobtainable due to mental status [facility] Past Medical History Attestation statement: The following information was validated with the patient. Source: old records reviewed and nursing notes reviewed Medical History HTN (hypertension) IDDM (insulin dependent diabetes mellitus) Social History Social History Advance Directives: No Advance Directives Information Provided: No Physical Exam ED Vital Signs: Vital Signs - 24 hr 06/30/24 12:45 06/30/24 14:47 Temperature 98.3 F Pulse Rate 83 85 Respiratory Rate 16 16 Blood Pressure 151/83 H 135/78 Pulse Oximetry 100 100 Oxygen Delivery Method Room Air Room Air BMI result Body Mass Index 30.4 vss Appearance: Alert.? Oriented to person not place, time or situation.? No acute distress.? Head: Normocephalic, atraumatic, no step-offs or deformities Eyes: Pupils equal, round and reactive to light.? CVS: Normal heart rate and rhythm.? Pulses normal.? Respiratory: No respiratory distress.?B/l wheeze. Abdomen: Soft and nontender.? Skin: Skin warm and dry.? Normal skin color.? Normal skin turgor.? Extremities: No lower extremity edema.? No calf ttp. 5/5 strength to bilateral upper and lower extremities Back: No midline tenderness, no C-spine tenderness, full range of motion, no CVA tenderness bilaterally Neuro: Oriented to person not place, time or situation. No motor deficit.? No sensory deficit. CN 2-12 intact Course Reevaluation(s) Reevaluation #1: CBC with no acute findings. Chemistry with low potassium, patient drank oral potassium, patient's point of care glucose initially was 19, it is now 122, patient eating and drinking alert and oriented x4. Beta hydroxybutyrate negative. VBG unremarkable. Patient states he wants to leave, explained to him this would be against medical advice and he can if he leaves. He reports he needs to go to work and he does not want to lose his job explained we could provide work note however is refusing to stay will sign out against medical advice despite the risks of leaving. Patient in sane mind to make his own decisions Time: 15:12 Medications Administered Generic Name Dose Route Start Last Admin Trade Name Freq PRN Reason Stop Dose Admin Dextrose/Sodium Chloride 1,000 mls @ 100 mls/hr 06/30/24 13:00 06/30/24 12:52 D5ns IVCONT 100 mls/hr .Q10H KASI Administration Discontinued Medications Generic Name Dose Route Start Last Admin Trade Name Freq PRN Reason Stop Dose Admin Glucose 15 gm 06/30/24 12:47 06/30/24 12:52 Glucose Gel 15 Gm Gel..Gram. PO 06/30/24 12:48 15 gm ONCE ONE Administration Glucose 15 gm 06/30/24 13:52 06/30/24 14:52 Glucose Gel 15 Gm Gel..Gram. PO 06/30/24 13:53 Not Given ONCE ONE Potassium Chloride 40 meq 06/30/24 14:18 06/30/24 14:47 Potassium Chloride Packet 20 Meq Packet PO 06/30/24 14:19 40 meq ONCE ONE Administration Medical Decision Making Medical Decision Making MDM Narrative: 53 yo m presents w/ [place] p[place] 37 initially PE patient confused Hx and pe concerning for acute hypoglycemia. Will rule out polysubstance, ich, metabolic derangments. Less likely stroke, meningitis, encephalitis Plan- labs,imaging Differential Diagnosis Differential Diagnoses: The differential diagnosis associated with the presentation includes Hx and pe concerning for acute hypoglycemia. Will rule out polysubstance, ich, metabolic derangments. Less likely stroke, meningitis, encephalitis Admission/Observation Consideration of admission/observation: Escalation of care including admission/observation considered possible Lab Data MDM Lab Attestation statement: I reviewed the patient's lab results. 06/30/24 13:12 06/30/24 13:12 Labs: Lab Results 06/30/24 06/30/24 06/30/24 Range/Units 12:45 13:11 13:12 WBC 8.0 (4.8-10.8) X10*3/uL RBC 5.02 (4.60-5.80) X10*6/uL Hgb 16.2 (14.0-18.0) g/dl Hct 47.9 (42.0-52.0) % MCV 95.4 (80.0-98.0) fL MCH 32.3 (27.0-33.0) pg MCHC 33.8 (31.0-36.0) g/dl RDW 13.0 (11.0-16.0) % Plt Count 279 (160-400) X10*3/uL MPV 10.2 (9.4-12.4) fL Immature Gran % (Auto) 0.3 (0.0-0.4) % Neut % (Auto) 70.7 (45-73) % Lymph % (Auto) 18.4 L (20-40) % [place]oshone % (Auto) 9.4 (2-11) % Eos % (Auto) 1.1 (0-4) % Baso % (Auto) 0.1 (0-2) % Lymph # (Auto) 1.5 (1.2-4.9) X10*3/uL [place]oshone # (Auto) 0.8 (0.1-1.2) X10*3/uL Eos # (Auto) 0.1 (0.0-0.4) X10*3/uL Baso # (Auto) 0.0 (0.0-0.2) X10*3/uL Abs Immat Gran (auto) 0.02 (0.00-0.03) X10*3/uL Absolute Neuts (auto) 5.6 (2.0-8.3) x10*3/uL Absolute Nucleated RBC 0.000 (0.0-0.012) X10*3/uL Nucleated RBC % (auto) 0.0 (0.0-0.2) /100WBC VBG pH (7.32-7.43) VBG pCO2 mmHg VBG pO2 mmHg VBG HCO3 (22-26) mmol/L VBG O2 Saturation % VBG Base Excess mmol/L Sodium 138 (135-145) mmol/L Potassium 3.0 L (3.3-5.1) mmol/L Chloride 101 (96-108) mmol/L Carbon Dioxide 28 (22-29) mmol/L Anion Gap 12 (12-20) BUN 9 (9-16) mg/dL Creatinine 0.91 (0.5-1.4) mg/dL Estim Creat Clear Calc 105.0 Estimated GFR > 60 POC Glucose 56 L* (60-115) mg/dL Random Glucose 19 L* (60-115) mg/dL Calcium 9.3 (8.4-10.2) mg/dL Magnesium 2.0 (1.6-2.6) mg/dL Total Bilirubin 0.4 (0.0-1.0) mg/dL AST 18 (5-37) U/L ALT 16 (0-40) U/L Alkaline Phosphatase 80 (39-117) U/L Total Protein 7.6 (6.5-8.0) g/dL Albumin 4.1 (3.5-5.0) g/dL Beta-Hydroxybutyrate 0.07 (0.02-0.27) mmol/L Salicylates < 5.0 L (15-30) mg/dL Acetaminophen < 3 (<30) mcg/mL 06/30/24 06/30/24 06/30/24 Range/Units 13:16 13:22 14:25 WBC (4.8-10.8) X10*3/uL RBC (4.60-5.80) X10*6/uL Hgb (14.0-18.0) g/dl Hct (42.0-52.0) % MCV (80.0-98.0) fL MCH (27.0-33.0) pg MCHC (31.0-36.0) g/dl RDW (11.0-16.0) % Plt Count (160-400) X10*3/uL MPV (9.4-12.4) fL Immature Gran % (Auto) (0.0-0.4) % Neut % (Auto) (45-73) % Lymph % (Auto) (20-40) % Shoshone % (Auto) (2-11) % Eos % (Auto) (0-4) % Baso % (Auto) (0-2) % Lymph # (Auto) (1.2-4.9) X10*3/uL Shoshone # (Auto) (0.1-1.2) X10*3/uL Eos # (Auto) (0.0-0.4) X10*3/uL Baso # (Auto) (0.0-0.2) X10*3/uL Abs Immat Gran (auto) (0.00-0.03) X10*3/uL Absolute Neuts (auto) (2.0-8.3) x10*3/uL Absolute Nucleated RBC (0.0-0.012) X10*3/uL Nucleated RBC % (auto) (0.0-0.2) /100WBC VBG pH 7.43 (7.32-7.43) VBG pCO2 49 mmHg VBG pO2 30 mmHg VBG HCO3 32 H (22-26) mmol/L VBG O2 Saturation 78.0 % VBG Base Excess 7.0 mmol/L Sodium (135-145) mmol/L Potassium (3.3-5.1) mmol/L Chloride (96-108) mmol/L Carbon Dioxide (22-29) mmol/L Anion Gap (12-20) BUN (9-16) mg/dL Creatinine (0.5-1.4) mg/dL Estim Creat Clear Calc Estimated GFR POC Glucose 60 122 H (60-115) mg/dL Random Glucose (60-115) mg/dL Calcium (8.4-10.2) mg/dL Magnesium (1.6-2.6) mg/dL Total Bilirubin (0.0-1.0) mg/dL AST (5-37) U/L ALT (0-40) U/L Alkaline Phosphatase (39-117) U/L Total Protein (6.5-8.0) g/dL Albumin (3.5-5.0) g/dL Beta-Hydroxybutyrate (0.02-0.27) mmol/L Salicylates (15-30) mg/dL Acetaminophen (<30) mcg/mL Independent Interpretation I performed an independent interpretation of an: EKG, Plain X-Ray and CT Scan Radiology Impression Discussion of test interpretation with radiology: I have reviewed the radiologist's reading. Chronic Conditions Patient?s care impacted by: Other (substance abuse, iddm, htn ) Social Determinants Patient?s care significantly limited by Social Determinants of Health including: Alcoholism and drug addiction in family Critical Care Time Critical Care Time Critical Care Time: Yes Total Critical Care Time: 35 Attestation: I attest to this time spent taking care of the patient, obtaining history, physical, reviewing labs, imaging, treatment of patients condition +/- specialist/hospitalist consult Discharge Plan Discharge Clinical Impression: Hypoglycemia, Left against medical advice Patient Disposition: Left Against Medical Advice Additional Instructions: Take your medications as prescribed. If you were prescribed antibiotics today, it is important that you take your medication to their entirety, do not skip any doses, do not finish them early. Follow-up with your primary care provider this week. Return to the emergency department with new or worsening symptoms. Such as fevers, chills, chest pain, shortness of breath, nausea, vomiting, dizziness, headache, vision changes, lethargy In case of emergency call 911 Patient decided to leave against medical advice. I took the time to go over risks of leaving against medical advice including . Patient verbalizes understanding of this. Advised them to come back if they change their mind. Referrals: Physician,Unknown J [Primary Care Provider] - 2 days Stand Alone Forms: Against Medical Advice Print Language: Belarusian
[2024-06-30 12:45] VITALS: BP 151/83; PULSE 83; RESP 16; TEMP 36.8; O2SAT 100; BMI 30.4
[2024-06-30 12:48] LABS: Glucose, Whole Blood 56 mg/dL (60-115)
--- NOTE | 2024-06-30 12:49 | ECG_ITS ---
Test Reason : ams Blood Pressure : / mmHG Vent. Rate : 075 BPM Atrial Rate : 075 BPM P-R Int : 148 ms QRS Dur : 110 ms QT Int : 440 ms P-R-T Axes : 059 038 133 degrees QTc Int : 491 ms Normal sinus rhythm Possible Left atrial enlargement Incomplete left bundle branch block Minimal voltage criteria for LVH, may be normal variant ( Kip product ) Nonspecific ST and T wave abnormality Prolonged QT Abnormal ECG No previous ECGs available Referred By: Lc Yoo Electronically Signed By:SIMONA ST
[2024-06-30] MEDS: Dextrose 5 % and 0.9 % NaCl 1,000 ML 100 ML IVCONT (12:52)
[2024-06-30] MEDS: Glucose Gel 15 GM GEL..GRAM. PO (12:52)
--- NOTE | 2024-06-30 12:56 | PC.NURSE ---
Glucose recheck 56 at 12:45. Светлана PATIÑO made aware. Pt given oral glucose and D5 drip initiated. Pt given orange juice with sugar, crackers, pudding and cheese stick.
[2024-06-30 13:17] LABS: MANUAL DIFF FLAG NO
[2024-06-30 13:19] LABS: Basophils Percent Auto 0.1 % (0-2); Eosinophils Absolute Auto 0.1 X10*3/uL (0.0-0.4); Eosinophils Percent Auto 1.1 % (0-4); Hematocrit 47.9 % (42.0-52.0); Hemoglobin 16.2 g/dl (14.0-18.0); Imm Gran Abs Auto 0.02 X10*3/uL (0.00-0.03); Imm Gran Pct Auto 0.3 % (0.0-0.4); Lymphocytes Absolute Auto 1.5 X10*3/uL (1.2-4.9); Lymphocytes Percent Auto 18.4 % (20-40); Mean Corpuscular HGB Conc 33.8 g/dl (31.0-36.0); Mean Corpuscular Hemoglobin 32.3 pg (27.0-33.0); Mean Corpuscular Volume 95.4 fL (80.0-98.0); Mean Platelet Volume 10.2 fL (9.4-12.4); Monocytes Absolute Auto 0.8 X10*3/uL (0.1-1.2); Monocytes Percent Auto 9.4 % (2-11); Neutrophils Absolute Auto 5.6 x10*3/uL (2.0-8.3); Neutrophils Percent Auto 70.7 % (45-73); Platelet Count 279 X10*3/uL (160-400); Red Blood Count 5.02 X10*6/uL (4.60-5.80)
--- NOTE | 2024-06-30 13:20 | PC.NURSE ---
Labs drawn/sent.
--- NOTE | 2024-06-30 13:21 | PC.NURSE ---
Meal tray ordered for pt.
[2024-06-30 13:24] LABS: VBG HCO3 32 mmol/L (22-26); VBG pCO2 49 mmHg; VBG pH 7.43 (7.32-7.43); VBG pO2 30 mmHg
[2024-06-30 13:25] LABS: Venous Blood Gas Refer to POC result
[2024-06-30 13:26] LABS: Glucose, Whole Blood 60 mg/dL (60-115)
--- OUTSIDE RECORDS SUMMARY | 2024-06-30 13:30 | XMS_ITS | Continuity of Care Document ---
Author Organization [facility] Adult Address [address] [place] [address]- Care Team Providers Care Metallurgical Laboratory Assistant Name Role Phone Demetrio THURMAN, Britt Elam Primary Care Physician [place] [facility] [place]/26[place]20 - 06/25/20 [facility] [address] [place] [id number] [facility] Allergies, Adverse Reactions, Alerts Substance Reaction Severity Status traZODone Stomach ache Active Immunizations Given and Recorded Vaccine Date Status Refusal Reason tetanus/diphtheria/pertussis, acel(Tdap) 05/10/15 Given pneumococcal 23-valent vaccine 1 11/15/09 Given influ virus vac, H1N1, inactive(oldterm) 2 11/15/09 Given influenza virus vaccine, inactivated 3 11/15/09 Gi richard 1Result Comment: lot # [id number] 2Result Comment: lot # [id number] 3Result Comment: lot # [id number] Medications albuterol CFC free 90 mcg/inh inhalation aerosol 180 mcg, 2, puffs, Inhalation, Every 4 hours, PRN, # 1 each, Refills 1, Tot. Refills 1, Maintenance, 04/19/18 9:45:54 EDT, Inhaler, Route to Pharmacy Electronically, [id number], [facility] [id number] Start Date: 04/19/18 Status: Ordered aspirin 81 mg oral tablet 1 tablet = 81 mg, By Mouth, Daily, # 90 tablet, 6 Refills, Maintenance, 04/19/18 9:41:09 EDT, Tablet Start Date: 04/19/18 Status: Ordered atorvastatin 20 mg oral tablet 1 tablet = 20 mg, By Mouth, Daily, # 30 tablet, 0 Refills, Maintenance, Tablet, Route to Pharmacy Electronically, [id number], [facility] [id number] Start Date: 10/04/18 Status: Ordered folic acid 1 mg oral tablet 1 mg, 1, tablet, By Mouth, Daily, # 30 tablet, Refills 0, Maintenance, 11/06/18 8:38:32 EST Start Date: 11/06/18 Status: Ordered Freestyle Lite Lancets See Instructions, # 200 each, Refills 5, Tot. Refills 5, Maintenance, Diabetes Mellitus test blood sugars 4 X Daily E11.9, 12/06/16 8:53:08, Compound Start Date: 12/06/16 Stop Date: 06/04/17 Status: Ordered Freestyle Lite Monitor See Instructions, # 1 each, Refills 0, Tot. Refills 0, Maintenance, test BG 4 X Daily IDDM II E11.9, 12/06/16 10:27:00, Compound Start Date: 12/06/16 Stop Date: 01/05/17 Status: Ordered Freestyle Lite Test Strips See Instructions, # 400 each, Refills 0, Tot. Refills 0, Maintenance, Diabetes Mellitus test blood sugars 4 X Daily E11.9, 01/04/19 15:44:44 EST, please override rx, Compound Start Date: 01/04/19 Stop Date: 02/03/19 Status: Ordered gabapentin 300 mg oral capsule See Instructions, 900 mg, twice daily, # 30 capsule, Refills 3, Tot. Refills 3, Maintenance, 04/19/18 9:46:20 EDT, Instructions Replace Required Details, Route to Pharmacy Electronically, [id number], [facility] [id number] Start Date: 04/19/18 Status: Ordered hydrochlorothiazide 25 mg oral tablet 25 mg, 1, tablet, By Mouth, Daily, # 30 tablet, Refills 0, Maintenance, 11/06/18 8:42:30 EST Start Date: 11/06/18 Status: Ordered hydrOXYzine hydrochloride 50 mg oral tablet 1 tablet = 50 mg, By Mouth, 4 times a day, PRN for anxiety, # 40 tablet, 0 Refills, Maintenance, 11/06/18 8:41:26 EST, Tablet Start Date: 11/06/18 Status: Ordered Insulin Syringe, BD Ultra-Fine 1 cc 31 G x 8 mm (5/16in) See Instructions, # 1 box, Refills 2, Tot. Refills 2, Maintenance, use as directed dx E11.9, 02/14/19 10:56:30 EDT, Compound Start Date: 02/14/19 Status: Ordered Lantus 100 u/ml subcutaneous solution = 25 units, Subcutaneous Injection, Daily, # 15 mL, 0 Refills, Maintenance, 02/06/19 13:26:46 EDT, Solution Start Date: 02/06/19 Stop Date: 03/08/19 Status: Ordered lisinopril 20 mg oral tablet 20 mg, 1, tablet, By Mouth, Daily, # 30 tablet, Refills 0, Maintenance, 11/06/18 8:41:10 EST Start Date: 11/06/18 Status: Ordered naproxen 500 mg oral delayed release tablet 1 tablet = 500 mg, By Mouth, 2 times a day, # 60 tablet, 0 Refills, Maintenance, 11/06/18 8:41:19 EST, EC Tablet Start Date: 11/06/18 Status: Ordered NovoLOG FlexPen 100 units/mL subcutaneous solution See Instructions, Subcutaneous Injection, Use as directed for Diabetes mellitus type 2 . before a meal 10-20 units, # 15 mL, 0 Refills, Maintenance, 02/06/19 13:26:45 EDT Start Date: 02/06/19 Status: Ordered Pen Lapel, 31 G x 5 mm BD Ultra Fine III See Instructions, # 100 each, Refills 5, Tot. Refills 5, Maintenance, 2use as directed for Type2 Diabetes Mellitus, 02/06/19 13:26:45 EDT, Compound Start Date: 02/06/19 Stop Date: 08/05/19 Status: Ordered thiamine 100 mg oral tablet 100 mg, 1, tablet, By Mouth, Daily, # 10 tablet, Refills 0, Maintenance, 11/06/18 8:38:25 EST Start Date: 11/06/18 Stop Date: 11/16/18 Status: Ordered ziprasidone 20 mg oral capsule See Instructions, 20 mg in the morning, 40 mg at 5 PM, per 2900 mg discharge summary from [facility], 10/28/18, 0 Refills, Maintenance, 11/06/18 8:39:15 EST Start Date: 11/06/18 Status: Ordered zolpidem 5 mg oral tablet 1 tablet = 5 mg, By Mouth, Daily at bedtime, PRN as needed for insomnia, 0 Refills, Maintenance, 11/06/18 8:40:39 EST, Tablet Start Date: 11/06/18 Status: Ordered Problem List Condition Effective Dates Status Health Status Inform ant Anxiety(Confirmed) Active Bipolar disorder(Confirmed) Active Cardiomyopathy, EF: 28%, per myocardial perfusion imaging study in [facility] on 06/27/18(Confirmed) Active Diabetes mellitus(Confirmed) Active Hypertension, essential(Confirmed) Active High cholesterol(Confirmed) Active Insomnia(Confirmed) Active Asthma, mild intermittent, well-controlled(Confirmed) Active Obesity(Confirmed) Active Opiate abuse, episodic(Confirmed) Active Social History Social History Type Response Smoking Status Former smoker; Type: Cigarettes; Other: Quit 3 months ago, was smoking for 3 years 1 pack per week; entered on: 12/06/16 Sex
--- OUTSIDE RECORDS SUMMARY | 2024-06-30 13:30 | XMS_ITS | Continuity of Care Document ---
Author Organization [facility] Address [address] [place] [id number]- Care Team Providers Care Manager Community Outreach Name Role Phone Daylin Hobson MD Primary Care Physician Encounter [facility] Date(s): 08/28/22 - 09/27/22 [facility] [address] [place] [id number]- Allergies, Adverse Reactions, Alerts No Known Allergies Immunizations Given and Recorded Vaccine Date Status Refusal Reason influenza virus vaccine, inactivated 08/19/22 Give n influenza virus vaccine, inactivated 1 11/15/09 Gi richard SARS-CoV-2 (COVID-19) mRNA BNT-162b2 vac 06/02/21 Recorded pneumococcal 23-valent vaccine 02/17/19 Recorded pneumococcal 23-valent vaccine 3 11/15/09 Given tetanus/diphtheria/pertussis, acel(Tdap) 05/10/15 Given influ virus vac, H1N1, inactive(oldterm) 4 11/15/09 Given Not Given Vaccine Date Status Refusal Reason influenza virus vaccine, inactivated 2 12/09/20 No t Given Patient Refuses 1Result Comment: lot # [id number] 2Result Comment: lot # [id number] 3Result Comment: lot # [id number] 4Result Comment: the regular flu does not exist..i do not want the shot Medications Albuterol (Eqv-ProAir HFA) 90 mcg/inh inhalation aerosol 2 puffs, Inhalation, Every 6 hours, PRN Wheezing/Shortness of Breath, # 1 each, 0 Refills, Maintenance, 08/22/22 11:53:00 EDT, Inhaler, [id number], Partial fill upon patient request if the prescription is for a schedule II opioid drug., 2 puff... Start Date: 08/22/22 Status: Ordered Basaglar KwikPen 100 units/mL subcutaneous solution = 50 units, Subcutaneous Injection, Daily at bedtime, # 15 mL, 3 Refills, Maintenance, 08/22/22 10:10:00 EDT, Solution, [facility]/pharmacy #[id number], Partial fill upon patient request if the prescription is for a schedule II opioid drug., 173, cm, 08/02/22 17:1... Start Date: 08/22/22 Status: Ordered cloNIDine 0.1 mg oral tablet 0.1 mg, 1, tablet, By Mouth, 3 times a day, PRN, # 90 tablet, Refills 0, Tot. Refills 0, Maintenance, Anxiety, 08/22/22 10:10:00 EDT, Route to Pharmacy Electronically, [facility]/pharmacy #[id number], Partial fill upon patient request if the prescription is for a... Start Date: 08/22/22 Status: Ordered diphenhydrAMINE 50 mg oral tablet 1 tablet = 50 mg, By Mouth, Daily at bedtime, PRN Insomnia, # 30 tablet, 0 Refills, Maintenance, 01/11/21 9:26:00 EST, Tablet, [facility], Partial fill upon patient request if the prescription is for a schedule II opioid drug., 174, cm,... Start Date: 01/11/21 Status: Ordered gabapentin 800 mg oral tablet 1 tablet = 800 mg, By Mouth, 2 times a day, # 28 each, 0 Refills, Maintenance, 08/22/22 10:10:00 EDT, Tablet, [facility]/pharmacy #[id number], Partial fill upon patient request if the prescription is for a schedule II opioid drug., 173, cm, 08/02/22 17:10:00 EDT,... Start Date: 08/22/22 Status: Ordered gemfibrozil 600 mg oral tablet 600 mg, 1, tablet, By Mouth, 2 times a day before breakfast and dinne, # 60 tablet, Refills 0, Tot.Refills 0, Maintenance, 08/22/22 11:53:00 EDT, Route to Pharmacy Electronically, [facility]/pharmacy #[id number], Partial fill upon patient request if the prescript... Start Date: 08/22/22 Stop Date: 09/21/22 Status: Ordered Lasix 20 mg oral tablet 20 mg, 1, tablet, By Mouth, 2 times a day, # 60 tablet, Refills 0, Tot. Refills 0, Maintenance, 08/22/22 10:13:00 EDT, Route to Pharmacy Electronically, [facility]/pharmacy #[id number], Partial fill upon patient request if the prescription is for a schedule II opi... Start Date: 08/22/22 Status: Ordered Lipitor 40 mg oral tablet 1 tablet = 40 mg, By Mouth, Daily, # 30 tablet, 0 Refills, Maintenance, 08/22/22 10:10:00 EDT, Tablet, [facility]/pharmacy #[id number], Partial fill upon patient request if the prescription is for a schedule II opioid drug., 173, cm, 08/02/22 17:10:00 EDT, Height,... Start Date: 08/22/22 Status: Ordered lisinopril 20 mg oral tablet 40 mg, 2, tablet, By Mouth, Daily, # 120 tablet, Refills 0, Tot. Refills 0, Maintenance, 08/22/22 10:21:00 EDT, Route to Pharmacy Electronically, [facility]/pharmacy #[id number], Partial fill upon patient requestif the prescription is for a schedule II opioid christie... Start Date: 08/22/22 Status: Ordered metoprolol 25 mg oral tablet, extended release 25 mg, 1, tablet, By Mouth, Daily, # 30 tablet, Refills 0, Tot. Refills 0, Maintenance, 08/22/22 10:13:00 EDT, Route to Pharmacy Electronically, [id number], Partial fill upon patient request if the prescription is for a schedule II opioid drug... Start Date: 08/22/22 Status: Ordered NovoLOG 100 units/mL subcutaneous solution = 20 units, Subcutaneous Injection, 3 times a day before meals, 100 - 139 10 u 140 - 179 12 u 180 -219 14 u 220 - 259 16 u 260 - 299 18 u 300 - 339 20 u 340 - 379 22 u 380+ 24 u, # 15 mL, 3 Refills,Maintenance, 08/22/22... Start Date: 08/22/22 Status: Ordered Ozempic (1 mg dose) 4 mg/3 mL subcutaneous solution 0.75 mL = 1 mg, Subcutaneous Injection, Every Sunday, # 3.75 mL, 0 Refills, Maintenance, 08/22/22 11:53:00 EDT, Solution, [facility]/pharmacy #[id number], Partial fill upon patient request if the prescription is for a schedule II opioid drug., 173, cm, 08/02/22 17... Start Date: 08/22/22 Status: Ordered Pen [place], 29 G x 12.7 mm BD Ultra Fine See Instructions, # 130 each, Maintenance, use as directed for Type 2 Diabetes Mellitus, 01/11/21 9:27:00 EST, Supply, 174, cm, 01/10/21 20:22:00 EST, Height, 96.5, kg, 01/04/21 15:04:00 EST, Dry Weight Start Date: 01/11/21 Stop Date: 02/10/21 Status: Ordered SEROquel 100 mg oral tablet 100 mg, 1, tablet, By Mouth, 2 times a day, take at 9:00 am and 3:00 pm, # 60 tablet, Refills 0, Tot. Refills 0, Maintenance, 08/22/22 10:12:00 EDT, Route to Pharmacy Electronically, [facility]/pharmacy #[id number], Partial fill upon patient request if the prescri... Start Date: 08/22/22 Status: Ordered SEROquel 200 mg oral tablet 200 mg, 1, tablet, By Mouth, Daily at bedtime, # 30 tablet, Refills 0, Tot. Refills 0, Maintenance,08/22/22 10:12:00 EDT, Route to Pharmacy Electronically, [facility]/pharmacy #[id number], Partial fill upon patient request if the prescription is for a schedule II... Start Date: 08/22/22 Status: Ordered spironolactone 25 mg oral tablet 12.5 mg, 0.5, tablet, By Mouth, Daily, # 15 tablet, Refills 0, Tot. Refills 0, Maintenance, 08/22/22 10:13:00 EDT, Route to Pharmacy Electronically, [facility]/pharmacy #[id number], Partial fill upon patient request if the prescription is for a schedule II opioid... Start Date: 08/22/22 Status: Ordered Tylenol Extra Strength 500 mg oral tablet 2 tablet = 1,000 mg, By Mouth, Every 6 hours, PRN for pain, for 360 days, # 100 tablet, 0 Refills, Acute 08/17/23 11:53:00 EDT, 08/22/22 11:53:00 EDT, Tablet, [id number], Partial fill upon patient request if the prescription is for a schedule... Start Date: 08/22/22 Stop Date: 08/17/23 Status: Ordered Problem List Condition Confirmation Course Effective Dates Status Health St atus Informant Anxiety Confirmed Active Bipolar disorder Confirmed Active Cardiomyopathy, EF: 28%, per myocardial perfusion imaging study in [facility] on 06/27/18 Confirmed Active Diabetes mellitus Confirmed Active Hypertension, essential Confirmed Active High cholesterol Confirmed Active Insomnia Confirmed Active Asthma, mild intermittent, well-controlled Confirmed Active Obese class I Confirmed Active Obesity Confirmed Active Opiate abuse, episodic Confirmed Active Social History Social History Type Response Smoking Status Type: Cigarettes;For jian smoker; Other: Quit 3 months ago, was smoking for 3 years 1 pack per week; entered on: 12/06/16 Sex Patient Care team information Care Team Personnel Name: Mili Hunt RN Position: S RN Member Role: Primary Care Nurse Name: Barbara Ca RN Position: S RN Member Role: Primary Care Nurse Name: Kailey Kim RN Position: S RN Member Role: Primary Care Nurse Name: Anais Muir RN Position: S RN Member Role: Primary Care Nurse Name: Nina Lee RN Position: [facility] RN Supv Member Role: Primary Care Nurse Name: Mandy Leonardo RN Position: S RN Member Role: Primary Care Nurse Name: Leonora García RN Position: S RN Member Role: Primary Care Nurse Name: Feli Ramsey RN Position: S RN Member Role: Primary Care Nurse Name: Daylin Hobson MD Position: Reference Physician Member Role: PCP Address: Address: [address] [place] [address]- Care Team Related Persons Name: CASSY VÁSQUEZ Address: home [phone] [address] Name: SHAY ROB Address: home [address] [place] [id number] Name: NONE, [place] Name: KAYLENE MADERA Address: [place] [address]
--- OUTSIDE RECORDS SUMMARY | 2024-06-30 13:30 | XMS_ITS | Continuity of Care Document ---
Author Organization [facility] Address [address] [place] [id number]- Care Team Providers Care Cuff Runner Name Role Phone Nia THURMAN, Grace Primary Care Physician Encounter [facility] Date(s): 10/03/21 - 12/23/21 [facility] [address] [place] [id number] Attending Physician: Gio Dutta MD Admitting Physician: Gio Dutta MD Referring Physician: Daylin Hobson MD Allergies, Adverse Reactions, Alerts No Known Allergies Immunizations Given and Recorded Vaccine Date Status Refusal Reason tetanus/diphtheria/pertussis, acel(Tdap) 05/10/15 Given pneumococcal 23-valent vaccine 1 11/15/09 Given influ virus vac, H1N1, inactive(oldterm) 2 11/15/09 Given influenza virus vaccine, inactivated 3 11/15/09 Gi richard Not Given Vaccine Date Status Refusal Reason influenza virus vaccine, inactivated 4 12/09/20 No t Given Patient Refuses 1Result Comment: lot # [id number] 2Result Comment: lot # [id number] 3Result Comment: lot # [id number] 4Result Comment: the regular flu does not exist..i do not want the shot Medications Albuterol (Eqv-ProAir HFA) 90 mcg/inh inhalation aerosol 2 puffs, Inhalation, Every 6 hours, PRN Wheezing/Shortness of Breath, # 1 each, 0 Refills, Maintenance, 01/11/21 9:26:00 EST, Inhaler, [facility], Partial fill upon patient request if the prescription is for a schedule II opioid drug., 2... Start Date: 01/11/21 Status: Ordered Basaglar KwikPen 100 units/mL subcutaneous solution = 50 units, Subcutaneous Injection, Daily at bedtime, # 15 mL, 3 Refills, Maintenance, 11/23/21 15:14:00 EST, Solution, [facility]/pharmacy #[id number], Partial fill upon patient request if the prescription is for a schedule II opioid drug., 174, cm, 11/23/21 14:3... Start Date: 11/23/21 Status: Ordered cloNIDine 0.1 mg oral tablet 0.1 mg, 1, tablet, By Mouth, 3 times a day, # 90 tablet, Refills 0, Tot. Refills 0, Maintenance, 01/11/21 9:27:00 EST, Route to Pharmacy Electronically, [facility], Partial fill upon patient request if the prescription is for a schedule... Start Date: 01/11/21 Stop Date: 02/10/21 Status: Ordered diphenhydrAMINE 50 mg oral tablet 1 tablet = 50 mg, By Mouth, Daily at bedtime, PRN Insomnia, # 30 tablet, 0 Refills, Maintenance, 01/11/21 9:26:00 EST, Tablet, [facility], Partial fill upon patient request if the prescription is for a schedule II opioid drug., 174, cm,... Start Date: 01/11/21 Status: Ordered gabapentin 100 mg oral capsule 200 mg, 2, capsule, By Mouth, 3 times a day, # 180 capsule, Refills 0, Tot. Refills 0, Maintenance,11/23/21 15:14:00 EST, Route to Pharmacy Electronically, [facility]/pharmacy #[id number], Partial fill upon patient request if the prescription is for a schedule II... Start Date: 11/23/21 Status: Ordered gemfibrozil 600 mg oral tablet 600 mg, 1, tablet, By Mouth, 2 times a day before breakfast and dinne, # 60 tablet, Refills 0, Tot.Refills 0, Maintenance, 01/11/21 9:26:00 EST, Route to Pharmacy Electronically, [facility], Partial fill upon patient request if the pres... Start Date: 01/11/21 Stop Date: 02/10/21 Status: Ordered hydrochlorothiazide 25 mg oral tablet 25 mg, 1, tablet, By Mouth, Daily, # 30 tablet, Refills 0, Tot. Refills 0, Maintenance, 11/30/21 12:49:00 EST, [id number] Partial fill upon patient request if the prescription is for a schedule II opioid drug... Start Date: 11/30/21 Stop Date: 12/30/21 Status: Ordered hydrOXYzine pamoate 50 mg oral capsule 1 capsule = 50 mg, By Mouth, 4 times a day, PRN for anxiety, # 120 capsule, 0 Refills, Maintenance,01/11/21 9:26:00 EST, Capsule, [facility], Partial fill upon patient request if the prescription is for a schedule II opioid drug., 174,... Start Date: 01/11/21 Status: Ordered Lipitor 40 mg oral tablet 1 tablet = 40 mg, By Mouth, Daily, # 30 tablet, 0 Refills, Maintenance, 11/30/21 10:42:00 EST, Tablet, Partial fill upon patient request if the prescription is for a schedule II opioid drug. Start Date: 11/30/21 Status: Ordered lisinopril 20 mg oral tablet 20 mg, 1, tablet, By Mouth, Daily, # 30 tablet, Refills 0, Tot. Refills 0, Maintenance, 01/11/21 9:26:00 EST, Route to Pharmacy Electronically, [facility], Partial fill upon patient request if the prescription is for a schedule II opioid... Start Date: 01/11/21 Stop Date: 02/10/21 Status: Ordered NovoLOG 100 units/mL subcutaneous solution = 20 units, Subcutaneous Injection, 3 times a day before meals, 100 - 139 10 u 140 - 179 12 u 180 -219 14 u 220 - 259 16 u 260 - 299 18 u 300 - 339 20 u 340 - 379 22 u 380+ 24 u, # 15 mL, 3 Refills,Maintenance, 11/23/21... Start Date: 11/23/21 Status: Ordered Ozempic (0.25 mg or 0.5 mg dose) 2 mg/1.5 mL subcutaneous solution = 0.5 mg, Subcutaneous Injection, Every week, next due on 01/12, # 1.5 mL, 0 Refills, Maintenance, 01/11/21 9:26:00 EST, Solution, [facility], Partial fill upon patient request if the prescription is for a schedule II opioid drug., 174, c... Start Date: 01/11/21 Status: Ordered Pen [place], 29 G x 12.7 mm BD Ultra [...] tablet, Refills 0, Tot. Refills 0, Maintenance, 01/11/21 9:26:00 EST, Route to Pharmacy Electronically, [facility], Partial fill upon patient request if the pr... Start Date: 01/11/21 Status: Ordered SEROquel 200 mg oral tablet 200 mg, 1, tablet, By Mouth, Daily at bedtime, # 30 tablet, Refills 0, Tot. Refills 0, Maintenance,01/11/21 9:26:00 EST, Route to Pharmacy Electronically, [facility], Partial fill uponpatient request if the prescription is for a schedu... Start Date: 01/11/21 Status: Ordered sertraline 50 mg oral tablet See Instructions, 1 tablet By Mouth Daily x 14 days, then 2 tablets daily, # 42 tablet, 0 Refills, Maintenance, 01/11/21 9:26:00 EST, Tablet, [facility], Partial fill upon patient request if the prescription is for a schedule II opioid d... Start Date: 01/11/21 Status: Ordered traZODone 50 mg oral tablet 50 mg, 1, tablet, By Mouth, Daily at bedtime, # 30 tablet, Refills 0, Tot. Refills 0, Maintenance, 01/11/21 9:26:00 EST, [facility], Partial fill upon patient request if the prescription is for a schedul... Start Date: 01/11/21 Status: Ordered Problem List Condition Effective Dates Status Health Status Inform ant Anxiety(Confirmed) Active Bipolar disorder(Confirmed) Active Cardiomyopathy, EF: 28%, per myocardial perfusion imaging study in [facility] on 06/27/18(Confirmed) Active Diabetes mellitus(Confirmed) Active Hypertension, essential(Confirmed) Active High cholesterol(Confirmed) Active Insomnia(Confirmed) Active Asthma, mild intermittent, well-controlled(Confirmed) Active Obese class I(Confirmed) Active Obesity(Confirmed) Active Opiate abuse, episodic(Confirmed) Active Social History Social History Type Response Smoking Status Type: Cigarettes;For jian smoker; Other: Quit 3 months ago, was smoking for 3 years 1 pack per week; entered on: 12/06/16 Sex
--- OUTSIDE RECORDS SUMMARY | 2024-06-30 13:30 | XMS_ITS | Continuity of Care Document ---
Author Organization [facility] Address [address] [place] [id number]- Care Team Providers Care Track Grinder Name Role Phone Demetrio THURMAN, Britt Elam Primary Care Physician [phone] Encounter [facility] Date(s): 02/17/20 - 02/17/[address] [address]- [facility] Discharge Disposition: A-D/C Home Attending Physician: Anusha Mason MD Admitting Physician: Anusha Mason MD Referring Physician: Not on Staff, Referring MD Allergies, Adverse Reactions, Alerts Substance Reaction Severity Status traZODone Stomach ache Active Immunizations Given and Recorded Vaccine Date Status Refusal Reason tetanus/diphtheria/pertussis, acel(Tdap) 05/10/15 Given pneumococcal 23-valent vaccine 1 11/15/09 Given influ virus vac, H1N1, inactive(oldterm) 2 11/15/09 Given influenza virus vaccine, inactivated 3 11/15/09 Gi richard 1Result Comment: lot # [id number] 2Result Comment: lot # [id number] 3Result Comment: lot # [id number] Medications albuterol CFC free 90 mcg/inh inhalation aerosol 180 mcg, 2, puffs, Inhalation, Every 4 hours, PRN, # 1 each, Refills 1, Tot. Refills 1, Maintenance, 04/19/18 9:45:54 EDT, Inhaler, Route to Pharmacy Electronically, [id number], [id number] Start Date: 6/15/18 Status: Ordered aspirin 81 mg oral tablet 1 tablet = 81 mg, By Mouth, Daily, # 90 tablet, 6 Refills, Maintenance, 04/19/18 9:41:09 EDT, Tablet Start Date: 04/19/18 Status: Ordered atorvastatin 20 mg oral tablet 1 tablet = 20 mg, By Mouth, Daily, # 30 tablet, 0 Refills, Maintenance, Tablet, Route to Pharmacy Electronically, [id number], [id number] Start Date: 10/04/18 Status: Ordered folic acid [...] Replace Required Details, Route to Pharmacy Electronically, [id number], [facility] [id number] Start Date: 04/19/18 Status: Ordered hydrochlorothiazide 25 [...] EDT Start Date: 02/06/19 Status: Ordered Pen [place], 31 G x 5 mm BD Ultra Fine III See Instructions, # 100 each, Refills 5, Tot. Refills 5, Maintenance, 2use as directed for Type2 Diabetes Mellitus, 02/06/19 13:26:45 EDT, Compound Start Date: 02/06/19 Stop Date: 08/05/19 Status: Ordered Percocet 2.5 mg-325 mg oral tablet 2 tablet, By Mouth, Every 6 hours, Do not take with alcohol. Only fill for severe pain., # 10 tablet, 0 Refills, Acute 02/24/20 19:53:00 EDT, 02/17/20 19:52:00 [id number], 2 tablet By Mouth Every 6 hours,Instr:Do not take with al... Start Date: 02/17/20 Stop Date: 02/24/20 Status: Ordered thiamine 100 mg oral tablet 100 mg, 1, tablet, By Mouth, Daily, # 10 tablet, Refills 0, Maintenance, 11/06/18 8:38:25 EST Start Date: 11/06/18 Stop Date: 11/16/18 Status: Ordered ziprasidone 20 mg oral capsule See Instructions, 20 mg in the morning, 40 mg at 5 PM, per 2900 mg discharge summary from [facility], 10/28/18, 0 Refills, Maintenance, 11/06/18 8:39:15 EST [...] 28%, per myocardial perfusion imaging study in [facility] on 06/27/18(Confirmed) Active Diabetes mellitus(Confirmed) Active Hypertension, essential(Confirmed) Active High cholesterol(Confirmed) Active Insomnia(Confirmed) Active Asthma, mild intermittent, well-controlled(Confirmed) Active Obesity(Confirmed) Active Opiate abuse, episodic(Confirmed) Active Results Radiology Reports * Exam Date Time Procedure Performing Provider Status 02/17/20 5:54 PM Knee 1 or 2 Views Right KiAna coker; Auth (Verified) Notes: (Knee 1 or 2 Views Right) Reason For Exam: Trauma RESULT: Knee 1 or 2 Views Right Knee 1 or 2 Views Right, 2 views Reason: Trauma; Clinical Question(s): Fracture; Hx of Present Illness: COMPARISON: None. FINDINGS: There is no evidence of acute or healing fracture, dislocation or bone lesion. No arthritic changes. No osteochondral defects or intra-articular loose bodies. No evidence of joint effusion. IMPRESSION: No acute osseous injury identified. WSN: [id number] Ordering Physician: Arthur Rosario Dictated By: Grzegorz العلي MD Dictated Date/Time: 02/17/20 5:59 pm Reviewed By: Grzegorz العلي MD Signed By: Grzegorz العلي MD Signed Date/Time: 02/17/20 5:59 pm Transcribed By: OTILIA Transcribed Date/Time: 02/17/20 5:58 pm Vital Signs Most recent to oldest [Reference Range]: 1 2 3 Oxygen Saturation [94-100 %] 100 % (02/17/20 7:57 PM) 98 % (02/17/20 5:09 PM) Pulse Rate [55-90 bpm] 93 bpm *H* (02/17/20 7:57 PM) 85 bpm (02/17/20 5:09 PM) Blood Pressure [90-138/55-84 mm Hg] 180/110mm Hg *H* (02/17/20 7:57 PM) 154/86mm Hg *H* (02/17/20 5:09 PM) Respiratory Rate [16-30 br/min] 18 br/min (02/17/20 7:57 PM) 18 br/min (02/17/20 7:50 PM) 18 br/min (02/17/20 6:15 PM) Temperature [96.8-100.4 DegF] 98.6 DegF (02/17/20 5:09 PM) Mode of Delivery (Oxygen) Room air (02/17/20 7:57 PM) Room air (02/17/20 5:09 PM) Blood pressure sites Arm, right (02/17/20 5:09 PM) Temperature Route Oral (02/17/20 5:09 PM) Social History Social History Type Response Smoking Status Type: Cigarettes;For jian smoker; Other: Quit 3 months ago, was smoking for 3 years 1 pack per week; entered on: 12/06/16 Sex
--- OUTSIDE RECORDS SUMMARY | 2024-06-30 13:30 | XMS_ITS | Continuity of Care Document ---
Author Organization [facility] Address [address] [place] [id number]- Care Team Providers Care Lumber Sales Supervisor Name Role Phone Nia THURMAN, Grace Primary Care Physician Encounter [facility] Date(s): 12/08/21 - 01/07/22 [facility] [address] [place] [id number] [[email or web address]] Allergies, Adverse Reactions, Alerts No Known Allergies [...] lot # [id number] 2Result Comment: lot # [id number] 3Result Comment: lot # [id number] 4Result Comment: the regular flu does not exist..i do not want the shot Medications Albuterol (Eqv-ProAir HFA) 90 mcg/inh inhalation aerosol 2 puffs, Inhalation, Every 6 hours, PRN Wheezing/Shortness of Breath, # 1 each, 0 Refills, Maintenance, 01/11/21 9:26:00 EST, Inhaler, [facility], Partial fill upon patient request if the prescription is for a schedule II opioid drug., 2... Start Date: 01/11/21 Status: Ordered Basaglar KwikPen 100 units/mL subcutaneous solution = 50 units, Subcutaneous Injection, Daily at bedtime, # 15 mL, 3 Refills, Maintenance, 11/23/21 15:14:00 EST, Solution, [facility]/pharmacy #[id number], Partial fill upon patient request if the prescription is for a schedule II opioid drug., 174, cm, 11/23/21 14:3... Start Date: 11/23/21 Status: Ordered cloNIDine 0.1 mg oral tablet 0.1 mg, 1, tablet, By Mouth, 3 times a day, # 90 tablet, Refills 0, Tot. Refills 0, Maintenance, 01/11/21 9:27:00 EST, Route to Pharmacy Electronically, [facility], Partial fill upon patient request if the prescription is for a schedule... Start Date: 01/11/21 Stop Date: 02/10/21 Status: Ordered diphenhydrAMINE 50 mg oral tablet 1 tablet = 50 mg, By Mouth, Daily at bedtime, PRN Insomnia, # 30 tablet, 0 Refills, Maintenance, 01/11/21 9:26:00 EST, Tablet, [facility], Partial fill upon patient request if the prescription is for a schedule II opioid drug., 174, cm,... Start Date: 01/11/21 Status: Ordered gabapentin 100 mg oral capsule 200 mg, 2, capsule, By Mouth, 3 times a day, # 180 capsule, Refills 0, Tot. Refills 0, Maintenance,11/23/21 15:14:00 EST, Route to Pharmacy Electronically, [facility]/pharmacy #[id number], Partial fill upon patient request if the prescription is for a schedule II... Start Date: 11/23/21 Status: Ordered gemfibrozil 600 mg oral tablet 600 mg, 1, tablet, By Mouth, 2 times a day before breakfast and dinne, # 60 tablet, Refills 0, Tot.Refills 0, Maintenance, 01/11/21 9:26:00 EST, Route to Pharmacy Electronically, [facility], Partial fill upon patient request if the pres... Start Date: 01/11/21 Stop Date: 02/10/21 Status: Ordered hydrochlorothiazide 25 mg oral tablet 25 mg, 1, tablet, By Mouth, Daily, # 30 tablet, Refills 0, Tot. Refills 0, Maintenance, 11/30/21 12:49:00 EST, [id number] Partial fill upon patient request if the prescription is for a schedule II opioid drug... Start Date: 11/30/21 Stop Date: 12/30/21 Status: Ordered hydrOXYzine pamoate 50 mg oral capsule 1 capsule = 50 mg, By Mouth, 4 times a day, PRN for anxiety, # 120 capsule, 0 Refills, Maintenance,01/11/21 9:26:00 EST, Capsule, [facility], Partial fill upon patient [...] 01/11/21 9:26:00 EST, Route to Pharmacy Electronically, [facility], Partial fill upon patient [...] 0 Refills, Maintenance, 01/11/21 9:26:00 EST, Solution, [facility], Partial fill upon patient request if the prescription is for a schedule II opioid drug., 174, c... Start Date: 01/11/21 Status: Ordered Pen [place], 29 G x 12.7 mm BD Ultra [...] 01/11/21 9:26:00 EST, Route to Pharmacy Electronically, [facility], Partial fill upon patient request if the pr... Start Date: 01/11/21 Status: Ordered SEROquel 200 mg oral tablet 200 mg, 1, tablet, By Mouth, Daily at bedtime, # 30 tablet, Refills 0, Tot. Refills 0, Maintenance,01/11/21 9:26:00 EST, Route to Pharmacy Electronically, [facility], Partial fill uponpatient request if the prescription is for a schedu... Start Date: 01/11/21 Status: Ordered sertraline 50 mg oral tablet See Instructions, 1 tablet By Mouth Daily x 14 days, then 2 tablets daily, # 42 tablet, 0 Refills, Maintenance, 01/11/21 9:26:00 EST, Tablet, [facility], Partial fill upon patient request if the prescription is for a schedule II opioid d... Start Date: 01/11/21 Status: Ordered traZODone 50 mg oral tablet 50 mg, 1, tablet, By Mouth, Daily at bedtime, # 30 tablet, Refills 0, Tot. Refills 0, Maintenance, 01/11/21 9:26:00 EST, Route to Pharmacy Electronically, [facility], Partial fill upon patient request if the prescription is for a schedul... Start Date: 01/11/21 Status: Ordered Problem List Condition Effective Dates Status Health Status Inform ant Anxiety(Confirmed) Active Bipolar disorder(Confirmed) Active Cardiomyopathy, EF: 28%, per myocardial perfusion imaging study in [facility] on 06/27/18(Confirmed) Active Diabetes mellitus(Confirmed) Active Hypertension, [...]
--- OUTSIDE RECORDS SUMMARY | 2024-06-30 13:30 | XMS_ITS | Continuity of Care Document ---
Author Organization [facility] Address [address] [place] [id number]- Care Team Providers Care Conservation Officer Name Role Phone Daylin Hobson MD Primary Care Physician Encounter [facility] Date(s): 11/30/21 - 11/30/[address] [address]- Discharge Disposition: A-D/C Home Attending Physician: Sharonda THURMAN, Davidbeverly Admitting Physician: Keyla Bowie MD Referring Physician: Not on Staff, Referring MD Allergies, Adverse Reactions, Alerts No Known [...] lot # [id number] 2Result Comment: lot # [id number] 3Result Comment: lot # [id number] 4Result Comment: the regular flu does not exist..i do not want the shot Medications Albuterol (Eqv-ProAir HFA) 90 mcg/inh inhalation aerosol 2 puffs, Inhalation, Every 6 hours, PRN Wheezing/Shortness of Breath, # 1 each, 0 Refills, Maintenance, 01/11/21 9:26:00 EST, Inhaler, [facility], Partial fill upon patient request if the prescription is for a schedule II opioid drug., 2... Start Date: 01/11/21 Status: Ordered Basaglar KwikPen 100 units/mL subcutaneous solution = 50 units, Subcutaneous Injection, Daily at bedtime, # 15 mL, 3 Refills, Maintenance, 11/23/21 15:14:00 EST, Solution, [facility]/pharmacy #[id number], Partial fill upon patient request if the prescription is for a schedule II opioid drug., 174, cm, 11/23/21 14:3... Start Date: 11/23/21 Status: Ordered cloNIDine 0.1 mg oral tablet 0.1 mg, 1, tablet, By Mouth, 3 times a day, # 90 tablet, Refills 0, Tot. Refills 0, Maintenance, 01/11/21 9:27:00 EST, Route to Pharmacy Electronically, [facility], Partial fill upon patient request if the prescription is for a schedule... Start Date: 01/11/21 Stop Date: 02/10/21 Status: Ordered diphenhydrAMINE 50 mg oral tablet 1 tablet = 50 mg, By Mouth, Daily at bedtime, PRN Insomnia, # 30 tablet, 0 Refills, Maintenance, 01/11/21 9:26:00 EST, Tablet, [facility], Partial fill upon patient request if the prescription is for a schedule II opioid drug., 174, cm,... Start Date: 01/11/21 Status: Ordered gabapentin 100 mg oral capsule 200 mg, 2, capsule, By Mouth, 3 times a day, # 180 capsule, Refills 0, Tot. Refills 0, Maintenance,11/23/21 15:14:00 EST, Route to Pharmacy Electronically, [facility]/pharmacy #[id number], Partial fill upon patient request if the prescription is for a schedule II... Start Date: 11/23/21 Status: Ordered gemfibrozil 600 mg oral tablet 600 mg, 1, tablet, By Mouth, 2 times a day before breakfast and dinne, # 60 tablet, Refills 0, Tot.Refills 0, Maintenance, 01/11/21 9:26:00 EST, Route to Pharmacy Electronically, [facility], Partial fill upon patient request if the pres... Start Date: 01/11/21 Stop Date: 02/10/21 Status: Ordered hydrochlorothiazide 25 mg oral tablet 25 mg, 1, tablet, By Mouth, Daily, # 30 tablet, Refills 0, Tot. Refills 0, Maintenance, 11/30/21 12:49:00 EST, [id number] fill upon patient request if the prescription is for a schedule II opioid drug... Start Date: 11/30/21 Stop Date: 12/30/21 Status: Ordered hydrOXYzine pamoate 50 mg oral capsule 1 capsule = 50 mg, By Mouth, 4 times a day, PRN for anxiety, # 120 capsule, 0 Refills, Maintenance,01/11/21 9:26:00 EST, Capsule, [facility], Partial fill upon patient [...] 01/11/21 9:26:00 EST, Route to Pharmacy Electronically, [facility], Partial fill upon patient [...] 0 Refills, Maintenance, 01/11/21 9:26:00 EST, Solution, [facility], Partial fill upon patient request if the prescription is for a schedule II opioid drug., 174, c... Start Date: 01/11/21 Status: Ordered Pen [place], 29 G x 12.7 mm BD Ultra [...] 01/11/21 9:26:00 EST, Route to Pharmacy Electronically, [facility], Partial fill upon patient request if the pr... Start Date: 01/11/21 Status: Ordered SEROquel 200 mg oral tablet 200 mg, 1, tablet, By Mouth, Daily at bedtime, # 30 tablet, Refills 0, Tot. Refills 0, Maintenance,01/11/21 9:26:00 EST, Route to Pharmacy Electronically, [facility], Partial fill uponpatient request if the prescription is for a schedu... Start Date: 01/11/21 Status: Ordered sertraline 50 mg oral tablet See Instructions, 1 tablet By Mouth Daily x 14 days, then 2 tablets daily, # 42 tablet, 0 Refills, Maintenance, 01/11/21 9:26:00 EST, Tablet, [facility], Partial fill upon patient request if the prescription is for a schedule II opioid d... Start Date: 01/11/21 Status: Ordered traZODone 50 mg oral tablet 50 mg, 1, tablet, By Mouth, Daily at bedtime, # 30 tablet, Refills 0, Tot. Refills 0, Maintenance, 01/11/21 9:26:00 EST, Route to Pharmacy Electronically, [facility], Partial fill upon patient request if the prescription is for a schedul... Start Date: 01/11/21 Status: Ordered Problem List Condition Effective Dates Status Health Status Inform ant Anxiety(Confirmed) Active Bipolar disorder(Confirmed) Active Cardiomyopathy, EF: 28%, per myocardial perfusion imaging study in [facility] on 06/27/18(Confirmed) Active Diabetes mellitus(Confirmed) Active Hypertension, essential(Confirmed) Active High cholesterol(Confirmed) Active Insomnia(Confirmed) Active Asthma, mild intermittent, well-controlled(Confirmed) Active Obese class I(Confirmed) Active Obesity(Confirmed) Active Opiate abuse, episodic(Confirmed) Active Vital Signs Most recent to oldest [Reference Range]: 1 2 3 Oxygen Saturation [94-100 %] 100 % (11/30/21 12:41 PM) 99 % (11/30/21 11:14 AM) 100 % (11/30/21 11:06 AM) Pulse Rate [55-90 bpm] 80 bpm (11/30/21 12:41 PM) 90 bpm (11/30/21 11:14 AM) 90 bpm (11/30/21 11:06 AM) Blood Pressure [90-138/55-84 mm Hg] 160/78mm Hg *H* (11/30/21 12:41 PM) 164/99mm Hg *H* (11/30/21 11:14 AM) 170/64mm Hg *H* (11/30/21 11:06 AM) Respiratory Rate [16-30 br/min] 16 br/min (11/30/21 12:41 PM) 16 br/min (11/30/21 11:14 AM) 16 br/min (11/30/21 11:06 AM) Temperature [96.8-100.4 DegF] 98.3 DegF (11/30/21 8:10 AM) 98.3 DegF (11/30/21 7:39 AM) 97.9 DegF (11/29/21 7:00 PM) Mode of Delivery (Oxygen) Room air (11/30/21 12:41 PM) Room air (11/30/21 11:14 AM) Room air (11/30/21 11:06 AM) Blood pressure sites Arm, right (11/30/21 12:41 PM) Arm, right (11/30/21 11:14 AM) Arm, right (11/30/21 11:06 AM) Temperature Route Oral (11/30/21 8:10 AM) Oral (11/30/21 7:39 AM) Oral (11/29/21 7:00 PM) Social History Social History Type Response Smoking Status Type: Cigarettes;For jian smoker; Other: Quit 3 months ago, was smoking for 3 years 1 pack per week; entered on: 12/06/16 Sex
--- OUTSIDE RECORDS SUMMARY | 2024-06-30 13:30 | XMS_ITS | Continuity of Care Document ---
Author Organization [facility] Address [address] [place] [id number]- Care Team Providers Care De Alcoholizer Name Role Phone Joce THURMAN, Daylin Primary Care Physician Encounter [facility] Date(s): 08/17/22 - 09/16/22 [facility] [address] [place] [id number] Allergies, Adverse Reactions, Alerts No Known Allergies [...] Given Patient Refuses 1Result Comment: lot # [id number] 2Result Comment: lot # [id number] 3Result Comment: lot # [id number] 4Result Comment: the regular flu does not exist..i do not want the shot Medications Albuterol (Eqv-ProAir HFA) 90 mcg/inh inhalation aerosol 2 puffs, Inhalation, Every 6 hours, PRN Wheezing/Shortness of Breath, # 1 each, 0 Refills, Maintenance, 08/22/22 11:53:00 EDT, Inhaler, [id number], Partial fill upon patient request if the prescription is for a schedule II opioid drug., 2 puff... Start Date: 08/22/22 Status: Ordered Basaglar KwikPen 100 units/mL subcutaneous solution = 50 units, Subcutaneous Injection, Daily at bedtime, # 15 mL, 3 Refills, Maintenance, 08/22/22 10:10:00 EDT, Solution, [facility]/pharmacy #[id number], Partial fill upon patient request if the prescription is for a schedule II opioid drug., 173, cm, 08/02/22 17:1... Start Date: 08/22/22 Status: Ordered cloNIDine 0.1 mg oral tablet 0.1 mg, 1, tablet, By Mouth, 3 times a day, PRN, # 90 tablet, Refills 0, Tot. Refills 0, Maintenance, Anxiety, 08/22/22 10:10:00 EDT, Route to Pharmacy Electronically, [id number], Partial fill upon patient request if the prescription is for a... Start Date: 08/22/22 Status: Ordered diphenhydrAMINE 50 mg oral tablet 1 tablet = 50 mg, By Mouth, Daily at bedtime, PRN Insomnia, # 30 tablet, 0 Refills, Maintenance, 01/11/21 9:26:00 EST, Tablet, [facility], Partial fill upon patient request if the prescription is for a schedule II opioid drug., 174, cm,... Start Date: 01/11/21 Status: Ordered gabapentin 800 mg oral tablet 1 tablet = 800 mg, By Mouth, 2 times a day, # 28 each, 0 Refills, Maintenance, 08/22/22 10:10:00 EDT, Tablet, [id number], Partial fill upon patient request if the prescription is for a schedule II opioid drug., 173, cm, 08/02/22 17:10:00 EDT,... Start Date: 08/22/22 Status: Ordered gemfibrozil 600 mg oral tablet 600 mg, 1, tablet, By Mouth, 2 times a day before breakfast and dinne, # 60 tablet, Refills 0, Tot.Refills 0, Maintenance, 08/22/22 11:53:00 EDT, Route to Pharmacy Electronically, [facility]/pharmacy #[id number], Partial fill upon patient request if the prescript... Start Date: 08/22/22 Stop Date: 09/21/22 Status: Ordered Lasix 20 mg oral tablet 20 mg, 1, tablet, By Mouth, 2 times a day, # 60 tablet, Refills 0, Tot. Refills 0, Maintenance, 08/22/22 10:13:00 EDT, Route to Pharmacy Electronically, [facility]/pharmacy #[id number], Partial fill upon patient request if the prescription is for a schedule II opi... Start Date: 08/22/22 Status: Ordered Lipitor 40 mg oral tablet 1 tablet = 40 mg, By Mouth, Daily, # 30 tablet, 0 Refills, Maintenance, 08/22/22 10:10:00 EDT, Tablet, [id number], Partial fill upon patient request if the prescription is for a schedule II opioid drug., 173, cm, 08/02/22 17:10:00 EDT, Height,... Start Date: 08/22/22 Status: Ordered lisinopril 20 mg oral tablet 40 mg, 2, tablet, By Mouth, Daily, # 120 tablet, Refills 0, Tot. Refills 0, Maintenance, 08/22/22 10:21:00 EDT, Route to Pharmacy Electronically, [facility]acy #[id number], Partial fill upon patient requestif the prescription is for a schedule II opioid christie... Start Date: 08/22/22 Status: Ordered metoprolol 25 mg oral tablet, extended release 25 mg, 1, tablet, By Mouth, Daily, # 30 tablet, Refills 0, Tot. Refills 0, Maintenance, 08/22/22 10:13:00 EDT, Route to Pharmacy Electronically, [facility]acy #[id number], Partial fill upon patient request if [...] 0 Refills, Maintenance, 08/22/22 11:53:00 EDT, Solution, [id number], Partial fill upon patient request if the prescription is for a schedule II opioid drug., 173, cm, 08/02/22 17... Start Date: 08/22/22 Status: Ordered Pen [place], 29 G x 12.7 mm BD Ultra [...] 08/22/22 10:12:00 EDT, Route to Pharmacy Electronically, [facility]/pharmacy #[id number], Partial fill upon patient request if the prescri... Start Date: 08/22/22 Status: Ordered SEROquel 200 mg oral tablet 200 mg, 1, tablet, By Mouth, Daily at bedtime, # 30 tablet, Refills 0, Tot. Refills 0, Maintenance,08/22/22 10:12:00 EDT, Route to Pharmacy Electronically, [facility]acy #[id number], Partial fill upon patient request if the prescription is for a schedule II... Start Date: 08/22/22 Status: Ordered spironolactone 25 mg oral tablet 12.5 mg, 0.5, tablet, By Mouth, Daily, # 15 tablet, Refills 0, Tot. Refills 0, Maintenance, 08/22/22 10:13:00 EDT, Route to Pharmacy Electronically, [facility]/pharmacy #[id number], Partial fill upon patient request if the prescription is for a schedule II opioid... Start Date: 08/22/22 Status: Ordered Tylenol Extra Strength 500 mg oral tablet 2 tablet = 1,000 mg, By Mouth, Every 6 hours, PRN for pain, for 360 days, # 100 tablet, 0 Refills, Acute 08/17/23 11:53:00 EDT, 08/22/22 11:53:00 EDT, Tablet, [id number], Partial fill upon patient request if the prescription is for a schedule... Start Date: 08/22/22 Stop Date: 08/17/23 Status: Ordered Problem List Condition Confirmation Course Effective Dates Status Health St atus Informant Anxiety Confirmed Active Bipolar disorder Confirmed Active Cardiomyopathy, EF: 28%, per myocardial perfusion imaging study in [facility] on 06/27/18 Confirmed Active Diabetes mellitus [...] Team Personnel Name: Mili Hunt RN Position: [facility] RN Member Role: Primary Care Nurse Name: Barbara Ca RN Position: S RN Member Role: Primary Care Nurse Name: Kailey Kim RN Position: [facility] RN Member Role: Primary Care Nurse Name: Anais Muir RN Position: [facility] RN Member Role: Primary Care Nurse Name: Nina Lee RN Position: [facility] RN Suplenin Member Role: Primary Care Nurse Name: Mandy Leonardo RN Position: [facility] RN Member Role: Primary Care Nurse Name: Leonora García RN Position: S RN Member Role: Primary Care Nurse Name: Feli Ramsey RN Position: [facility] RN Member Role: Primary Care Nurse Name: Daylin Hobson MD Position: Reference Physician Member Role: PCP Address: Address: [address] [place] [id number]- [place] Care Team Related Persons Name: CASSY VÁSQUEZ Address: home [address] [address] Name: SHAY ROB Address: home [address] [place] [address] Name: NONE, [place] Name: KAYLENE MADERA Address: [place] [address]
--- OUTSIDE RECORDS SUMMARY | 2024-06-30 13:30 | XMS_ITS | Continuity of Care Document ---
Author Organization [facility] Address [address] [place] [address]- Care Team Providers Care Manager Baby Name Role Phone Grace Kramer MD Primary Care Physician [phone] Encounter [facility] Date(s): 11/23/21 - 12/23/21 [facility] [address] [place] [id number] Attending Physician: Mustapha Johansen Admitting Physician: Mustapha Johansen Referring Physician: AdmMustapha booth Allergies, Adverse Reactions, Alerts No Known Allergies [...] lot # [id number] 2Result Comment: lot # [id number] 3Result Comment: lot # [id number] 4Result Comment: the regular flu does not exist..i do not want the shot Medications Albuterol (Eqv-ProAir HFA) 90 mcg/inh inhalation aerosol 2 puffs, Inhalation, Every 6 hours, PRN Wheezing/Shortness of Breath, # 1 each, 0 Refills, Maintenance, 01/11/21 9:26:00 EST, Inhaler, [facility], Partial fill upon patient [...] 01/11/21 9:27:00 EST, Route to Pharmacy Electronically, [facility], Partial fill upon patient request if the prescription is for a schedule... Start Date: 01/11/21 Stop Date: 02/10/21 Status: Ordered diphenhydrAMINE 50 mg oral tablet 1 tablet = 50 mg, By Mouth, Daily at bedtime, PRN Insomnia, # 30 tablet, 0 Refills, Maintenance, 01/11/21 9:26:00 EST, Tablet, [facility], Partial fill upon patient [...] 01/11/21 9:26:00 EST, Route to Pharmacy Electronically, [facility], Partial fill upon patient request if the pres... Start Date: 01/11/21 Stop Date: 02/10/21 Status: Ordered hydrochlorothiazide 25 mg oral tablet 25 mg, 1, tablet, By Mouth, Daily, # 30 tablet, Refills 0, Tot. Refills 0, Maintenance, 11/30/21 12:49:00 EST, [id number] Partial fill upon patient request if the prescription is for a schedule II opioid drug... Start Date: 11/30/21 Stop Date: 12/30/21 Status: Ordered hydrOXYzine pamoate 50 mg oral capsule 1 capsule = 50 mg, By Mouth, 4 times a day, PRN for anxiety, # 120 capsule, 0 Refills, Maintenance,01/11/21 9:26:00 EST, Capsule, [facility] 3, Partial fill upon patient request [...] 01/11/21 9:26:00 EST, Route to Pharmacy Electronically, [facility] 3, Partial fill upon patient request [...] 0 Refills, Maintenance, 01/11/21 9:26:00 EST, [facility], Partial fill upon patient request if the prescription is for a schedule II opioid drug., 174, c... Start Date: 01/11/21 Status: Ordered Pen [place], 29 G x 12.7 mm BD Ultra [...] 01/11/21 9:26:00 EST, Route to Pharmacy Electronically, [facility], Partial fill upon patient request if the pr... Start Date: 01/11/21 Status: Ordered SEROquel 200 mg oral tablet 200 mg, 1, tablet, By Mouth, Daily at bedtime, # 30 tablet, Refills 0, Tot. Refills 0, Maintenance,01/11/21 9:26:00 EST, Route to Pharmacy Electronically, [facility] 3, Partial fill uponpatient request if the prescription is for a schedu... Start Date: 01/11/21 Status: Ordered sertraline 50 mg oral tablet See Instructions, 1 tablet By Mouth Daily x 14 days, then 2 tablets daily, # 42 tablet, 0 Refills, Maintenance, 01/11/21 9:26:00 EST, Tablet, [facility] 3, Partial fill upon patient request if the prescription is for a schedule II opioid d... Start Date: 01/11/21 Status: Ordered traZODone 50 mg oral tablet 50 mg, 1, tablet, By Mouth, Daily at bedtime, # 30 tablet, Refills 0, Tot. Refills 0, Maintenance, 01/11/21 9:26:00 EST, Route to Pharmacy Electronically, [facility] 3, Partial fill upon patient request if the prescription is for a schedul... Start Date: 01/11/21 Status: Ordered Problem List Condition Effective Dates Status Health Status Inform ant Anxiety(Confirmed) Active Bipolar disorder(Confirmed) Active Cardiomyopathy, EF: 28%, per myocardial perfusion imaging study in [facility] on 06/27/18(Confirmed) Active Diabetes mellitus(Confirmed) Active Hypertension, [...]
--- OUTSIDE RECORDS SUMMARY | 2024-06-30 13:30 | XMS_ITS | Continuity of Care Document ---
Author Organization [facility] Address [address] [place] [address]- Care Team Providers Care Asphalt Paver Operator Name Role Phone Joce THURMAN, Daylin Primary Care Physician Encounter [facility] Date(s): 08/17/22 - 09/16/22 [facility] [address], [place] [address] Allergies, Adverse Reactions, Alerts No Known Allergies [...] Given Patient Refuses 1Result Comment: lot # [id number] 2Result Comment: lot # [id number] 3Result Comment: lot # [id number] 4Result Comment: the regular flu does not exist..i do not want the shot Medications Albuterol (Eqv-ProAir HFA) 90 mcg/inh inhalation aerosol 2 puffs, Inhalation, Every 6 hours, PRN Wheezing/Shortness of Breath, # 1 each, 0 Refills, Maintenance, 08/22/22 11:53:00 EDT, Inhaler, [id number], Partial fill upon patient request if the prescription is for a schedule II opioid drug., 2 puff... Start Date: 08/22/22 Status: Ordered Basaglar KwikPen 100 units/mL subcutaneous solution = 50 units, Subcutaneous Injection, Daily at bedtime, # 15 mL, 3 Refills, Maintenance, 08/22/22 10:10:00 EDT, Solution, [facility]/pharmacy #[id number], Partial fill upon patient request if the prescription is for a schedule II opioid drug., 173, cm, 08/02/22 17:1... Start Date: 08/22/22 Status: Ordered cloNIDine 0.1 mg oral tablet 0.1 mg, 1, tablet, By Mouth, 3 times a day, PRN, # 90 tablet, Refills 0, Tot. Refills 0, Maintenance, Anxiety, 08/22/22 10:10:00 EDT, Route to Pharmacy Electronically, [facility]/pharmacy #[id number], Partial fill upon patient request if the prescription is for a... Start Date: 08/22/22 Status: Ordered diphenhydrAMINE 50 mg oral tablet 1 tablet = 50 mg, By Mouth, Daily at bedtime, PRN Insomnia, # 30 tablet, 0 Refills, Maintenance, 01/11/21 9:26:00 EST, Tablet, [facility] 3, Partial fill upon patient request if the prescription is for a schedule II opioid drug., 174, cm,... Start Date: 01/11/21 Status: Ordered gabapentin 800 mg oral tablet 1 tablet = 800 mg, By Mouth, 2 times a day, # 28 each, 0 Refills, Maintenance, 08/22/22 10:10:00 EDT, Tablet, [facility]/pharmacy #[id number], Partial fill upon patient request if the prescription is for a schedule II opioid drug., 173, cm, 08/02/22 17:10:00 EDT,... Start Date: 08/22/22 Status: Ordered gemfibrozil 600 mg oral tablet 600 mg, 1, tablet, By Mouth, 2 times a day before breakfast and dinne, # 60 tablet, Refills 0, Tot.Refills 0, Maintenance, 08/22/22 11:53:00 EDT, Route to Pharmacy Electronically, [facility]/pharmacy #[id number], Partial fill upon patient request if the prescript... Start Date: 08/22/22 Stop Date: 09/21/22 Status: Ordered Lasix 20 mg oral tablet 20 mg, 1, tablet, By Mouth, 2 times a day, # 60 tablet, Refills 0, Tot. Refills 0, Maintenance, 08/22/22 10:13:00 EDT, Route to Pharmacy Electronically, [facility]/pharmacy #[id number], Partial fill upon patient request if the prescription is for a schedule II opi... Start Date: 08/22/22 Status: Ordered Lipitor 40 mg oral tablet 1 tablet = 40 mg, By Mouth, Daily, # 30 tablet, 0 Refills, Maintenance, 08/22/22 10:10:00 EDT, Tablet, [facility]/pharmacy #[id number], Partial fill upon patient request if the prescription is for a schedule II opioid drug., 173, cm, 08/02/22 17:10:00 EDT, Height,... Start Date: 08/22/22 Status: Ordered lisinopril 20 mg oral tablet 40 mg, 2, tablet, By Mouth, Daily, # 120 tablet, Refills 0, Tot. Refills 0, Maintenance, 08/22/22 10:21:00 EDT, Route to Pharmacy Electronically, [facility]/pharmacy #[id number], Partial fill upon patient requestif the prescription is for a schedule II opioid christie... Start Date: 08/22/22 Status: Ordered metoprolol 25 mg oral tablet, extended release 25 mg, 1, tablet, By Mouth, Daily, # 30 tablet, Refills 0, Tot. Refills 0, Maintenance, 08/22/22 10:13:00 EDT, Route to Pharmacy Electronically, [facility]/pharmacy #[id number], Partial fill upon patient request [...] 17... Start Date: 08/22/22 Status: Ordered Pen [place], 29 G x 12.7 mm BD Ultra [...] 08/22/22 10:12:00 EDT, Route to Pharmacy Electronically, [facility]/pharmacy #[id number], Partial fill upon patient request if the prescri... Start Date: 08/22/22 Status: Ordered SEROquel 200 mg oral tablet 200 mg, 1, tablet, By Mouth, Daily at bedtime, # 30 tablet, Refills 0, Tot. Refills 0, Maintenance,08/22/22 10:12:00 EDT, Route to Pharmacy Electronically, [id number], Partial fill upon patient request if the prescription is for a schedule II... Start Date: 08/22/22 Status: Ordered spironolactone 25 mg oral tablet 12.5 mg, 0.5, tablet, By Mouth, Daily, # 15 tablet, Refills 0, Tot. Refills 0, Maintenance, 08/22/22 10:13:00 EDT, Route to Pharmacy Electronically, [facility]/pharmacy #[id number], Partial fill upon patient request if the prescription is for a schedule II opioid... Start Date: 08/22/22 Status: Ordered Tylenol Extra Strength 500 mg oral tablet 2 tablet = 1,000 mg, By Mouth, Every 6 hours, PRN for pain, for 360 days, # 100 tablet, 0 Refills, Acute 08/17/23 11:53:00 EDT, 08/22/22 11:53:00 EDT, Tablet, [id number], Partial fill upon patient request if the prescription is for a schedule... Start Date: 08/22/22 Stop Date: 08/17/23 Status: Ordered Problem List Condition Confirmation Course Effective Dates Status Health St atus Informant Anxiety Confirmed Active Bipolar disorder Confirmed Active Cardiomyopathy, EF: 28%, per myocardial perfusion imaging study in [facility] on 06/27/18 Confirmed Active Diabetes mellitus Confirmed [...] Team Personnel Name: Mili Hunt RN Position: [facility] RN Member Role: Primary Care Nurse Name: Barbara Ca RN Position: [facility] RN Member Role: Primary Care Nurse Name: Kailey Kim RN Position: [facility] RN Member Role: Primary Care Nurse Name: Anais Muir RN Position: [facility] RN Member Role: Primary Care Nurse Name: Nina Lee RN Position: [facility] RN Supv Member Role: Primary Care Nurse Name: Mandy Leonardo RN Position: [facility] RN Member Role: Primary Care Nurse Name: Leonora García RN Position: [facility] RN Member Role: Primary Care Nurse Name: Feli Ramsey RN Position: [facility] RN Member Role: Primary Care Nurse Name: Daylin Hobson MD Position: Reference Physician Member Role: PCP Address: Address: [address] [place] [address]- [place] Care Team Related Persons Name: CASSY VÁSQUEZ Address: home [address] [address] Name: SHAY ROB Address: home [address] [place] [address] Name: NONE, [place] Name: KAYLENE MADERA Address: [place] [address]
--- OUTSIDE RECORDS SUMMARY | 2024-06-30 13:30 | XMS_ITS | Continuity of Care Document ---
Author Organization [facility] ter Address [address] [place] [address]- Care Team Providers Care Stabilizer Operator Name Role Phone Demetrio THURMAN, Britt Elam Primary Care Physician [phone] Encounter [facility] Date(s): 06/24/20 - 06/24/[address] [address]- [facility] Discharge Disposition: A-D/C Home Attending Physician: Rosas THURMAN, Iva Ricardo Admitting Physician: Rosas THURMAN, Iva Ricardo Referring Physician: Not on Staff, Referring MD Allergies, Adverse Reactions, Alerts Substance Reaction Severity Status traZODone Stomach ache Active Immunizations Given and Recorded Vaccine Date Status Refusal Reason tetanus/diphtheria/pertussis, acel(Tdap) 05/10/15 Given pneumococcal 23-valent vaccine 1 11/15/09 Given influ virus vac, H1N1, inactive(oldterm) 2 11/15/09 Given influenza virus vaccine, inactivated 3 11/15/09 Gi richard 1Result Comment: lot # [id number] 2Result Comment: lot # [id number] 3Result Comment: lot # [id number] Medications albuterol CFC free 90 mcg/inh inhalation aerosol 180 mcg, 2, puffs, Inhalation, Every 4 hours, PRN, # 1 each, Refills 1, Tot. Refills 1, Maintenance, 04/19/18 9:45:54 EDT, Inhaler, Route to Pharmacy Electronically, [id number], [facility] [address] Start Date: 04/19/18 Status: Ordered aspirin 81 mg oral tablet 1 tablet = 81 mg, By Mouth, Daily, # 90 tablet, 6 Refills, Maintenance, 04/19/18 9:41:09 EDT, Tablet Start Date: 04/19/18 Status: Ordered atorvastatin 20 mg oral tablet 1 tablet = 20 mg, By Mouth, Daily, # 30 tablet, 0 Refills, Maintenance, Tablet, Route to Pharmacy Electronically, [id number], [facility] [address] Start Date: 10/04/18 Status: Ordered folic acid [...] Replace Required Details, Route to Pharmacy Electronically, [id number], [facility] [address] Start Date: 04/19/18 Status: Ordered hydrochlorothiazide 25 [...] EDT Start Date: 02/06/19 Status: Ordered Pen [place], 31 G x 5 mm BD Ultra [...] PM, per 2900 mg discharge summary from [facility], 10/28/18, 0 Refills, Maintenance, 11/06/18 8:39:15 EST [...] Most recent to oldest [Reference Range]: 1 Oxygen Saturation [94-100 %] 99 % (06/24/20 2:16 PM) Pulse Rate [55-90 bpm] 85 bpm (06/24/20 2:16 PM) Blood Pressure [90-138/55-84 mm Hg] 133/ 81mm Hg (06/24/20 2:16 PM) Respiratory Rate [16-30 br/min] 18 br/mi n (06/24/20 2:16 PM) Temperature [96.8-100.4 DegF] 98.1 DegF (06/24/20 2:16 PM) Mode of Delivery (Oxygen) Room air (06/24/20 2:16 PM) Blood pressure sites Arm, left (06/24/20 2:16 PM) Temperature Route Oral (06/24/20 2:16 PM) Social History Social History Type Response Smoking Status Type: Cigarettes;For jian smoker; Other: Quit 3 months ago, was smoking for 3 years 1 pack per week; entered on: 12/06/16 Sex
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
--- OUTSIDE RECORDS SUMMARY | 2024-06-30 13:31 | XMS_ITS | Continuity of Care Document ---
Author Organization [facility] Address [address] [place] [address]- Care Team Providers Care Chaser Tar Name Role Phone Nia THURMAN, Grace Primary Care Physician [phone] [id number]): [facility] - 09/28/21 [facility] [address] [place] [address]- Encounter Diagnosis Type 2 diabetes mellitus(Discharge Diagnosis) - 09/21/21 Attending Physician: Karolina Mata MD Referring Physician: Nia THURMAN , Grace Allergies, Adverse Reactions, Alerts Substance Reaction Severity Status NKA Active Immunizations Given and Recorded Vaccine Date Status Refusal Reason tetanus/diphtheria/pertussis, acel(Tdap) 05/10/15 Given pneumococcal 23-valent vaccine 1 11/15/09 Given influ virus vac, H1N1, inactive(oldterm) 2 11/15/09 Given influenza virus vaccine, inactivated 3 11/15/09 Gi richard Not Given Vaccine Date Status Refusal Reason influenza virus vaccine, inactivated 4 12/09/20 No t Given Patient Refuses 1Result Comment: lot # [id number] 2Result Comment: lot # [id number] 3Result Comment: lot # [id number] 4Result Comment: the regular flu does not exist..i do not want the shot Medications Albuterol (Eqv-ProAir HFA) 90 mcg/inh inhalation aerosol 2 puffs, Inhalation, Every 6 hours, PRN Wheezing/Shortness of Breath, # 1 each, 0 Refills, Maintenance, 01/11/21 9:26:00 EST, Inhaler, [facility], Partial fill upon patient request if the prescription is for a schedule II opioid drug., 2... Start Date: 01/11/21 Status: Ordered Basaglar KwikPen 100 units/mL subcutaneous solution = 50 units, Subcutaneous Injection, Daily at bedtime, # 15 mL, 0 Refills, Maintenance, 01/11/21 9:27:00 EST, Solution, [facility], Partial fill upon patient request if the prescription is for a schedule II opioid drug., 174, cm, 01/10/21... Start Date: 01/11/21 Status: Ordered cloNIDine 0.1 mg oral tablet 0.1 mg, 1, tablet, By Mouth, 3 times a day, # 90 tablet, Refills 0, Tot. Refills 0, Maintenance, 01/11/21 9:27:00 EST, Route to Pharmacy Electronically, [facility], Partial fill upon patient request if the prescription is for a schedule... Start Date: 01/11/21 Stop Date: 02/10/21 Status: Ordered diphenhydrAMINE 50 mg oral tablet 1 tablet = 50 mg, By Mouth, Daily at bedtime, PRN Insomnia, # 30 tablet, 0 Refills, Maintenance, 01/11/21 9:26:00 EST, Tablet, [facility], Partial fill upon patient request if the prescription is for a schedule II opioid drug., 174, cm,... Start Date: 01/11/21 Status: Ordered gabapentin 100 mg oral capsule 200 mg, 2, capsule, By Mouth, 3 times a day, # 180 capsule, Refills 0, Tot. Refills 0, Maintenance,01/11/21 9:26:00 EST, Route to Pharmacy Electronically, [facility], Partial fill uponpatient request if the prescription is for a schedu... Start Date: 01/11/21 Status: Ordered gemfibrozil 600 mg oral tablet 600 mg, 1, tablet, By Mouth, 2 times a day before breakfast and dinne, # 60 tablet, Refills 0, Tot.Refills 0, Maintenance, 01/11/21 9:26:00 EST, [facility], [facility], Partial fill upon patient request if the pres... Start Date: 01/11/21 Stop Date: 02/10/21 Status: Ordered hydrOXYzine pamoate 50 mg oral capsule 1 capsule = 50 mg, By Mouth, 4 times a day, PRN for anxiety, # 120 capsule, 0 Refills, Maintenance,01/11/21 9:26:00 EST, Capsule, [facility], Partial fill upon patient request if the prescription is for a schedule II opioid drug., 174,... Start Date: 01/11/21 Status: Ordered Insulin Lispro KwikPen 100 units/mL injectable solution See Instructions, 100 - 139 10 u 140 - 179 12 u 180 - 219 14 u 220 - 259 16 u 260 - 299 18 u 300 - 339 20 u 340 - 379 22 u 380+ 24 u, # 15 mL, 1 Refills, Maintenance, 01/11/21 9:44:00 EST, [facility], Partial... Start Date: 01/11/21 Status: Ordered lisinopril 20 mg oral tablet 20 mg, 1, tablet, By Mouth, Daily, # 30 tablet, Refills 0, Tot. Refills 0, Maintenance, 01/11/21 9:26:00 EST, Route to Pharmacy Electronically, [email or web address], Partial fill upon patient request if the prescription is for a schedule II opioid... Start Date: 01/11/21 Stop Date: 02/10/21 Status: Ordered Ozempic (0.25 mg or 0.5 mg dose) 2 mg/1.5 mL subcutaneous solution = 0.5 mg, Subcutaneous Injection, Every week, next due on 01/12, # 1.5 mL, 0 Refills, Maintenance, 01/11/21 9:26:00 EST, Solution, [email or web address], Partial fill upon patient request if the prescription is for a schedule II opioid drug., 174, c... Start Date: 01/11/21 Status: Ordered Pen Points, 29 G x 12.7 mm BD Ultra [...] 01/11/21 9:26:00 EST, Route to Pharmacy Electronically, [facility], Partial fill upon patient request if the pr... Start Date: 01/11/21 Status: Ordered SEROquel 200 mg oral tablet 200 mg, 1, tablet, By Mouth, Daily at bedtime, # 30 tablet, Refills 0, Tot. Refills 0, Maintenance,01/11/21 9:26:00 EST, Route to Pharmacy Electronically, [facility], Partial fill uponpatient request if the prescription is for a schedu... Start Date: 01/11/21 Status: Ordered sertraline 50 mg oral tablet See Instructions, 1 tablet By Mouth Daily x 14 days, then 2 tablets daily, # 42 tablet, 0 Refills, Maintenance, 01/11/21 9:26:00 EST, Tablet, [facility], Partial fill upon patient request if the prescription is for a schedule II opioid d... Start Date: 01/11/21 Status: Ordered traZODone 50 mg oral tablet 50 mg, 1, tablet, By Mouth, Daily at bedtime, # 30 tablet, Refills 0, Tot. Refills 0, Maintenance, 01/11/21 9:26:00 EST, Route to Pharmacy Electronically, [facility], Partial fill upon patient request if the prescription is for a schedul... Start Date: 01/11/21 Status: Ordered Problem List Condition Effective Dates Status Health Status Inform ant Anxiety(Confirmed) Active Bipolar disorder(Confirmed) Active Cardiomyopathy, EF: 28%, per myocardial perfusion imaging study in [facility] on 06/27/18(Confirmed) Active Diabetes mellitus(Confirmed) Active Hypertension, essential(Confirmed) Active High cholesterol(Confirmed) Active Insomnia(Confirmed) Active Asthma, mild intermittent, well-controlled(Confirmed) Active Obesity(Confirmed) Active Opiate abuse, episodic(Confirmed) Active Diagnosis Diagnosis Type Effective Dates Health Status Cl inical Service Informant Type 2 diabetes mellitus Discharge Diagnosis 11/17/21 Vital Signs Most recent to oldest [Reference Range]: 1 Height 174 cm (09/21/21 4:48 PM) Oxygen Saturation [94-100 %] 100 % (09/21/21 4:48 PM) Pulse Rate [55-90 bpm] 94 bpm *H* (09/21/21 4:48 PM) Blood Pressure [90-138/55-84 mm Hg] 146/ 73mm Hg *H* (09/21/21 4:48 PM) Respiratory Rate [16-30 br/min] 24 br/mi n (09/21/21 4:48 PM) Temperature [96.8-100.4 DegF] 98.5 DegF (09/21/21 4:48 PM) Mode of Delivery (Oxygen) Room air (09/21/21 4:48 PM) Blood pressure sites Arm, left (09/21/21 4:48 PM) Temperature Route Temporal (09/21/21 4:48 PM) Social History Social History Type Response Smoking Status Former smoker; Type: Cigarettes; Other: Quit 3 months ago, was smoking for 3 years 1 pack per week; entered on: 12/06/16 Sex
--- OUTSIDE RECORDS SUMMARY | 2024-06-30 13:31 | XMS_ITS | Continuity of Care Document ---
Author Organization [facility] Address [address] [place] [address]- Care Team Providers Care Unit Secy Name Role Phone Nia THURMAN, Grace Primary Care Physician [phone] Encounter [facility] Date(s): 09/21/21 - 10/21/21 [facility] [address] [place], [place] [address] Attending Physician: AdmNeal [id number] Admitting Physician: Admtr, [id number] Referring Physician: Admtr, Ar8 Allergies, Adverse Reactions, Alerts Substance Reaction Severity [...] lot # [id number] 2Result Comment: lot # [id number] 3Result Comment: lot # [id number] 4Result Comment: the regular flu does not exist..i do not want the shot Medications Albuterol (Eqv-ProAir HFA) 90 mcg/inh inhalation aerosol 2 puffs, Inhalation, Every 6 hours, PRN Wheezing/Shortness of Breath, # 1 each, 0 Refills, Maintenance, 01/11/21 9:26:00 EST, Inhaler, [facility], Partial fill upon patient request if the prescription is for a schedule II opioid drug., 2... Start Date: 01/11/21 Status: Ordered Basaglar KwikPen 100 units/mL subcutaneous solution = 50 units, Subcutaneous Injection, Daily at bedtime, # 15 mL, 0 Refills, Maintenance, 01/11/21 9:27:00 EST, Solution, [facility], Partial fill upon patient request if the prescription is for a schedule II opioid drug., 174, cm, 01/10/21... Start Date: 01/11/21 Status: Ordered cloNIDine 0.1 mg oral tablet 0.1 mg, 1, tablet, By Mouth, 3 times a day, # 90 tablet, Refills 0, Tot. Refills 0, Maintenance, 01/11/21 9:27:00 EST, Route to Pharmacy Electronically, [facility], Partial fill upon patient request if the prescription is for a schedule... Start Date: 01/11/21 Stop Date: 02/10/21 Status: Ordered diphenhydrAMINE 50 mg oral tablet 1 tablet = 50 mg, By Mouth, Daily at bedtime, PRN Insomnia, # 30 tablet, 0 Refills, Maintenance, 01/11/21 9:26:00 EST, Tablet, [facility], Partial fill upon patient request if the prescription is for a schedule II opioid drug., 174, cm,... Start Date: 01/11/21 Status: Ordered gabapentin 100 mg oral capsule 200 mg, 2, capsule, By Mouth, 3 times a day, # 180 capsule, Refills 0, Tot. Refills 0, Maintenance,01/11/21 9:26:00 EST, Route to Pharmacy Electronically, [facility], Partial fill uponpatient request if the prescription is for a schedu... Start Date: 01/11/21 Status: Ordered gemfibrozil 600 mg oral tablet 600 mg, 1, tablet, By Mouth, 2 times a day before breakfast and dinne, # 60 tablet, Refills 0, Tot.Refills 0, Maintenance, 01/11/21 9:26:00 EST, Route to Pharmacy Electronically, [facility], Partial fill upon patient request if the pres... Start Date: 01/11/21 Stop Date: 02/10/21 Status: Ordered hydrOXYzine pamoate 50 mg oral capsule 1 capsule = 50 mg, By Mouth, 4 times a day, PRN for anxiety, # 120 capsule, 0 Refills, Maintenance,01/11/21 9:26:00 EST, Capsule, [facility], Partial fill upon patient request if [...] mL, 1 Refills, Maintenance, 01/11/21 9:44:00 EST, [facility], Partial... Start Date: 01/11/21 Status: Ordered lisinopril 20 mg oral tablet 20 mg, 1, tablet, By Mouth, Daily, # 30 tablet, Refills 0, Tot. Refills 0, Maintenance, 01/11/21 9:26:00 EST, Route to Pharmacy Electronically, [facility], Partial fill upon patient request if the prescription is for a schedule II opioid... Start Date: 01/11/21 Stop Date: 02/10/21 Status: Ordered Ozempic (0.25 mg or 0.5 mg dose) 2 mg/1.5 mL subcutaneous solution = 0.5 mg, Subcutaneous Injection, Every week, next due on 01/12, # 1.5 mL, 0 Refills, Maintenance, 01/11/21 9:26:00 EST, Solution, [facility], Partial fill upon patient request if the prescription is for a schedule II opioid drug., 174, c... Start Date: 01/11/21 Status: Ordered Pen [place], 29 G x 12.7 mm BD Ultra [...] 01/11/21 9:26:00 EST, Route to Pharmacy Electronically, [facility], Partial fill upon patient request if the pr... Start Date: 01/11/21 Status: Ordered SEROquel 200 mg oral tablet 200 mg, 1, tablet, By Mouth, Daily at bedtime, # 30 tablet, Refills 0, Tot. Refills 0, Maintenance,01/11/21 9:26:00 EST, Route to Pharmacy Electronically, [facility], Partial fill uponpatient request if the prescription is for a schedu... Start Date: 01/11/21 Status: Ordered sertraline 50 mg oral tablet See Instructions, 1 tablet By Mouth Daily x 14 days, then 2 tablets daily, # 42 tablet, 0 Refills, Maintenance, 01/11/21 9:26:00 EST, Tablet, [facility], Partial fill upon patient request if the prescription is for a schedule II opioid d... Start Date: 01/11/21 Status: Ordered traZODone 50 mg oral tablet 50 mg, 1, tablet, By Mouth, Daily at bedtime, # 30 tablet, Refills 0, Tot. Refills 0, Maintenance, 01/11/21 9:26:00 EST, Route to Pharmacy Electronically, [facility], Partial fill upon patient request if the prescription is for a schedul... Start Date: 01/11/21 Status: Ordered Problem List Condition Effective Dates Status Health Status Inform ant Anxiety(Confirmed) Active Bipolar disorder(Confirmed) Active Cardiomyopathy, EF: 28%, per myocardial perfusion imaging study in [facility] on 06/27/18(Confirmed) Active Diabetes mellitus(Confirmed) [...]
--- OUTSIDE RECORDS SUMMARY | 2024-06-30 13:31 | XMS_ITS | Continuity of Care Document ---
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 Name Role Phone Daylin Hobson MD Primary Care Physician Encounter [facility] Date(s): 08/18/22 - 08/22/[address] [address]- Encounter Diagnosis Acute asthma exacerbation(Final) - 08/18/22 Discharge Disposition: A-D/C Home Attending Physician: Nick Rendon MD Admitting Physician: Nick Rendon MD Referring Physician: Not on Staff, Referring [...] Given Patient Refuses 1Result Comment: lot # [id number] 2Result Comment: lot # [id number] 3Result Comment: lot # [id number] 4Result Comment: the regular flu does not exist..i do not want the shot Medications Acetaminophen Tablet 650 mg, Tablet, By Mouth, Every 4 hours, PRN for Pain , Mild, Temperature Greater than 100.5, Routine, 08/18/22 10:20:00 EDT Start Date: 08/18/22 Stop Date: 08/22/22 Status: Discontinued Albuterol (Eqv-ProAir HFA) 90 mcg/inh inhalation aerosol 2 puffs, Inhalation, Every 6 hours, PRN Wheezing/Shortness of Breath, # 1 each, 0 Refills, Maintenance, 08/22/22 11:53:00 EDT, Inhaler, [id number], Partial fill upon patient request if the prescription is for a schedule II opioid drug., 2 puff... Start Date: 08/22/22 Status: Ordered amLODIPine 5 mg oral tablet 5 mg, Tablet, By Mouth, 08/22/22 9:00:00 EDT Start Date: 08/22/22 Stop Date: 08/22/22 Status: Completed Basaglar KwikPen 100 units/mL subcutaneous solution = 50 units, Subcutaneous Injection, Daily at bedtime, # 15 mL, 3 Refills, Maintenance, 08/22/22 10:10:00 EDT, Solution, [facility]acy [facility][id number], Partial fill upon patient request if the prescription is for a schedule II opioid drug., 173, cm, 08/02/22 17:1... Start Date: 08/22/22 Status: Ordered cloNIDine 0.1 mg oral tablet 0.1 mg, 1, tablet, By Mouth, 3 times a day, PRN, # 90 tablet, Refills 0, Tot. Refills 0, Maintenance, Anxiety, 08/22/22 10:10:00 EDT, Route to Pharmacy Electronically, [facility]acy [id number], Partial fill upon patient request if the prescription is for a... Start Date: 08/22/22 Status: Ordered diphenhydrAMINE 50 mg oral tablet 1 tablet = 50 mg, By Mouth, Daily at bedtime, PRN Insomnia, # 30 tablet, 0 Refills, Maintenance, 01/11/21 9:26:00 EST, Tablet, [facility], Partial fill upon patient request if the prescription is for a schedule II opioid drug., 174, cm,... Start Date: 01/11/21 Status: Ordered gabapentin 400 mg oral capsule 800 mg, Capsule, By Mouth, 08/22/22 9:00:00 EDT Start Date: 08/22/22 Stop Date: 08/22/22 Status: Completed gabapentin 800 mg oral tablet [...] 08/22/22 11:53:00 EDT, Route to Pharmacy Electronically, [id number], Partial fill upon patient request if the prescript... Start Date: 08/22/22 Stop Date: 09/21/22 Status: Ordered hydrOXYzine hydrochloride 25 mg oral tablet 1 tablet = 25 mg, By Mouth, 3 times a day, PRN for anxiety, # 90 tablet, 0 Refills, Acute 08/23/22 10:16:00 EDT, 08/22/22 10:10:00 EDT, Tablet, [id number], Partial fill upon patient request if the prescription is for a schedule II opioid drug.... Start Date: 08/22/22 Stop Date: 08/23/22 Status: Ordered Lasix 20 mg oral tablet [...] lisinopril 20 mg oral tablet 40 mg, Tablet, By Mouth, 08/22/22 9:00:00 EDT Start Date: 08/22/22 Stop Date: 08/22/22 Status: Completed lisinopril 20 mg oral tablet 40 mg, 2, tablet, By Mouth, Daily, # 120 tablet, Refills 0, Tot. Refills 0, Maintenance, 08/22/22 10:21:00 EDT, Route to Pharmacy Electronically, [facility]acy [facility][id number], Partial fill upon patient requestif the prescription is for a schedule II opioid christie... Start Date: 08/22/22 Status: Ordered Melatonin 5 mg oral tablet 1 tablet = 5 mg, By Mouth, Daily at bedtime, PRN for insomnia, # 60 tablet, 0 Refills, Acute 08/23/22 10:17:00 EDT, 08/22/22 10:12:00 EDT, Tablet, [facility]/pharmacy #[id number], Partial fill upon patient request if the prescription is for a schedule II opioid dr... Start Date: 08/22/22 Stop Date: 08/23/22 Status: Ordered metoprolol 25 mg oral tablet, extended release 25 mg, XL Tablet, By Mouth, 08/22/22 10:07:00 EDT Start Date: 08/22/22 Stop Date: 08/22/22 Status: Completed metoprolol 25 mg oral tablet, extended release 25 mg, 1, tablet, By Mouth, Daily, # 30 tablet, Refills 0, Tot. Refills 0, Maintenance, 08/22/22 10:13:00 EDT, Route to Pharmacy Electronically, [id number], Partial fill upon patient request if [...] 0 Refills, Maintenance, 08/22/22 11:53:00 EDT, Solution, [facility]/pharmacy #[id number], Partial fill upon patient request if the prescription is for a schedule II opioid drug., 173, cm, 08/02/22 17... Start Date: 08/22/22 Status: Ordered Pen [place], 29 G x 12.7 mm BD Ultra [...] 08/22/22 10:12:00 EDT, Route to Pharmacy Electronically, [facility]acy [facility][id number], Partial fill upon patient request if the prescri... Start Date: 08/22/22 Status: Ordered SEROquel 200 mg oral tablet 200 mg, 1, tablet, By Mouth, Daily at bedtime, # 30 tablet, Refills 0, Tot. Refills 0, Maintenance,08/22/22 10:12:00 EDT, Route to Pharmacy Electronically, [facility][id number], Partial fill upon patient request if the prescription is for a schedule II... Start Date: 08/22/22 Status: Ordered spironolactone 25 mg oral tablet 12.5 mg, 0.5, tablet, By Mouth, Daily, # 15 tablet, Refills 0, Tot. Refills 0, Maintenance, 08/22/22 10:13:00 EDT, Route to Pharmacy Electronically, [facility]/pharmacy #[id number], Partial fill upon patient request if the prescription is for a schedule II opioid... Start Date: 08/22/22 Status: Ordered Tylenol Extra Strength 500 mg oral tablet 2 tablet = 1,000 mg, By Mouth, Every 6 hours, PRN for pain, for 360 days, # 100 tablet, 0 Refills, Acute 08/17/23 11:53:00 EDT, 08/22/22 11:53:00 EDT, Tablet, [facility]/pharmacy #[id number], Partial fill upon patient request if the prescription is for a schedule... Start Date: 08/22/22 Stop Date: 08/17/23 Status: Ordered zolpidem 10 mg oral tablet 1 tablet = 10 mg, By Mouth, Daily at bedtime, # 30 tablet, 0 Refills, Acute 08/23/22 10:17:00 EDT, 08/22/22 10:12:00 EDT, Tablet, [id number], Partial fill upon patient request if the prescription is for a schedule II opioid drug., 173, cm, ... Start Date: 08/22/22 Stop Date: 08/23/22 Status: Ordered Problem List Condition Confirmation Course Effective Dates Status Health St atus Informant Anxiety Confirmed Active Bipolar disorder Confirmed Active Cardiomyopathy, EF: 28%, per myocardial perfusion imaging study in [facility] on 06/27/18 Confirmed Active Diabetes mellitus Confirmed Active Hypertension, essential Confirmed Active High cholesterol Confirmed Active Insomnia Confirmed Active Asthma, mild intermittent, well-controlled Confirmed Active Obese class I Confirmed Active Obesity Confirmed Active Opiate abuse, episodic Confirmed Active Results Radiology Reports * Exam Date Time Procedure Performing Provider Status 08/18/22 6:58 AM Chest 2 Views Frontal and Lat Britt Gaspar; Jerad (Verified) Notes: (Chest 2 Views Frontal and Lat) Reason For Exam: sob, wheeze;Other: RESULT: Chest 2 Views Frontal and Lat Chest 2 Views Frontal and Lat Hx of Present Illness: Woke up wheezing, called EMS. Endorses non-compliance with prescribed antihypertensive, diabetes, and asthma meds. COMPARISON: 05/01/2022. FINDINGS: LINES AND TUBES: None. LUNGS AND PLEURA: Patchy opacity right perihilar and left mid mid to upper lung field laterally on the background of diffuse increased interstitial markings and cephalization of the pulmonary vasculature. No pleural effusion. No pneumothorax. HEART, MEDIASTINUM AND LYNDON: Mildly prominent greater than previous. BONES AND SOFT TISSUES: No acute abnormality. IMPRESSION: Findings most consistent with mild pulmonary edema Multifocal infiltrate and pneumonia less likely though not excluded. WSN: [id number] Ordering Physician: Roque Galindo Dictated By: Gumaro Regalado MD Dictated Date/Time: 08/18/22 7:12 am Reviewed By: Gumaro Regalado MD Signed By: Gumaro Regalado MD Signed Date/Time: 08/18/22 7:12 am Transcribed By: OTILIA Transcribed Date/Time: 08/18/22 7:07 am Vital Signs Most recent to oldest [Reference Range]: 1 2 3 Weight 108.6 kg (08/21/22 3:40 AM) 106.5 kg (08/20/22 6:06 AM) 111.4 kg (08/19/22 7:05 AM) Oxygen Saturation [94-100 %] 100 % (08/22/22 7:29 AM) 99 % (08/22/22 3:02 AM) 98 % (08/21/22 8:49 PM) Pulse Rate [55-90 bpm] 97 bpm *H* (08/22/22 11:48 AM) 97 bpm *H* (08/22/22 7:29 AM) 90 bpm (08/22/22 3:02 AM) Blood Pressure [90-138/55-84 mm Hg] 135/90mm Hg (08/22/22 11:48 AM) 135/90mm Hg (08/22/22 8:34 AM) 135/90mm Hg (08/22/22 8:34 AM) Respiratory Rate [16-30 br/min] 18 br/min (08/22/22 9:42 AM) 18 br/min (08/22/22 9:34 AM) 18 br/min (08/22/22 8:34 AM) Temperature [96.8-100.4 DegF] 97.4 DegF (08/22/22 7:29 AM) 98 DegF (08/22/22 3:02 AM) 97.8 DegF (08/21/22 8:49 PM) Liters per Minute 0 L/min (08/18/22 4:15 PM) Mode of Delivery (Oxygen) Room air (08/22/22 7:29 AM) Nasal cannula (08/22/22 3:02 AM) Room air (08/21/22 8:49 PM) Blood pressure sites Arm, right (08/22/22 7:29 AM) Arm, left (08/22/22 3:02 AM) Arm, left (08/21/22 8:49 PM) Temperature Route Temporal (08/22/22 7:29 AM) Oral (08/22/22 3:02 AM) Temporal (08/21/22 8:49 PM) Weight Obtained Via Bed scale (08/21/22 3:40 AM) Bed scale (08/20/22 6:06 AM) Bed scale (08/19/22 7:05 AM) Social History Social History Type Response Smoking Status Former smoker; Type: Cigarettes; Other: Quit 3 months ago, was smoking for 3 years 1 pack per week; entered on: 12/06/16 Sex Note * [employer] , CIS S: TRANSCRIBE Gumaro Regalado MD: VERIFY Event Display: Result: Authored Date: [id number] Chest 2 Views Frontal and Lat Hx of Present Illness: Woke up wheezing, called EMS. Endorses non-compliance with prescribed antihypertensive, diabetes, and asthma meds. COMPARISON: 05/01/2022. FINDINGS: LINES AND TUBES: None. LUNGS AND PLEURA: Patchy opacity right perihilar and left mid mid to upper lung field laterally on the background of diffuse increased interstitial markings and cephalization of the pulmonary vasculature. No pleural effusion. No pneumothorax. HEART, MEDIASTINUM AND LYNDON: Mildly prominent greater than previous. BONES AND SOFT TISSUES: No acute abnormality. IMPRESSION: Findings most consistent with mild pulmonary edema Multifocal infiltrate and pneumonia less likely though not excluded. WSN: [id number] Ordering Physician: Roque Galindo Dictated By: Gumaro Regalado MD Dictated Date/Time: 08/18/22 7:12 am Reviewed By: Gumaro Regalado MD Signed By: Gumaro Regalado MD Signed Date/Time: 08/18/22 7:12 am Transcribed By: OTILIA Transcribed Date/Time: 08/18/22 7:07 am Patient Care team information Personnel Name: Daylin Hobson MD Address: Address: [address] [place] [address]
[2024-06-30 13:35] LABS: Beta-Hydroxybutyrate 0.07 mmol/L (0.02-0.27)
[2024-06-30 13:42] LABS: Acetaminophen LAB < 3 mcg/mL (<30); Salicylate < 5.0 mg/dL (15-30)
[2024-06-30 13:47] LABS: Alanine Aminotransferase 16 U/L (0-40); Albumin Level 4.1 g/dL (3.5-5.0); Alkaline Phosphatase 80 U/L (39-117); Anion Gap 12 (12-20); Aspartate Amino Transferase 18 U/L (5-37); Bilirubin Total 0.4 mg/dL (0.0-1.0); Blood Urea Nitrogen 9 mg/dL (9-16); Calcium 9.3 mg/dL (8.4-10.2); Carbon Dioxide 28 mmol/L (22-29); Chloride 101 mmol/L (96-108); Estimated Glomerular Filt Rate > 60; Glucose Random 19 mg/dL (60-115); Sodium 138 mmol/L (135-145); Total Protein 7.6 g/dL (6.5-8.0)
--- NOTE | 2024-06-30 14:01 | PC.NURSE ---
Pt given meal tray.
[2024-06-30 14:28] LABS: Glucose, Whole Blood 122 mg/dL (60-115)
[2024-06-30 14:47] VITALS: BP 135/78; PULSE 85; RESP 16; O2SAT 100
[2024-06-30] MEDS: Potassium Chloride Packet 20 MEQ PACKET 40 MEQ PO (14:47)
--- NOTE | 2024-06-30 14:52 | PC.NURSE ---
Per Светлана PATIÑO, pt does not require glucose gel. Pt ate meal, feels better.
[2024-06-30 15:14] VITALS: BP 135/78; PULSE 85; RESP 16; TEMP 36.8
== END 2024-06-30 15:15 | disposition left against medical advice (07) ==
PROVIDERS: Physician Assistant; Emergency Provider Emergency Medicine
DX: E11.649 Type 2 diabetes mellitus with hypoglycemia without coma (principal); R51.9 Headache, unspecified; I10 Essential (primary) hypertension; M54.2 Cervicalgia; R41.82 Altered mental status, unspecified; R07.89 Other chest pain; Z79.899 Other long term (current) drug therapy
CPT/HCPCS: 36415; 70450; 71045; 72125; 80053; 80143; 80179; 82010; 82803; 82947; 83735; 85025; 93005; 99283; 99284